=== PATIENT | male | born 1935 | race Hispanic/Latino ===

== ENCOUNTER 2017-02-14 15:53 | Inpatient (IN) | payer MEDICARE ==
--- NOTE | 2017-02-14 16:44 | Emergency Department Report ---
HPI - General Chief Complaint: Weakness Time Seen by Provider: 02/14/17 16:26 - HPI HPI: This is an 81-year-old male who presents to the emergency department via EMS from home with complaint of weakness to the bilateral lower legs, back pain, and multiple falls recently. The patient fell 2 times last night but in the past few weeks there has been over 10 phone calls EMS for help lifting a patient off the ground and many more episodes where the family has been getting him off the ground. He has been increasingly unsteady gait but usually walks with a walker. He has swelling to the bilateral feet. He denies any headache, vision change, chest pain, shortness of breath or fever. He went to see his primary care doctor yesterday, Dr. Collins, who is going to send him for an outpatient MRI but he had 2 more falls last night. He does have chronic bilateral knee pain and was supposed to have knee replacement surgery a few months ago by a orthopedist, Dr. Herrera, but his health has been decreasing and they've not been able to do it. 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 No recent travel or sick contacts at home. ED Past Medical Hx - Past Medical History Hx Hypertension: Yes Hx Heart Attack/AMI: Yes (x 3) Hx Diabetes: Yes Additional medical history: high cholesterol, glacoma, catoracts, venous insufficiency - Surgical History Hx Appendectomy: Yes Additional Surgical History: Tonsilectomy, hemorrhiodectomy, cyst remove from skull x 2, bypass x 3 - Social History Smoking Status: Former Smoker Substance Use Type: None - Medications Home Medications: Home Medications Medication Instructions Recorded Confirmed Last Taken Type Aspirin [Aspirin BABY CHEW TAB] 81 mg PO QDAY 02/14/17 02/14/17 02/14/17 History AtorvaSTATin [Lipitor] 20 mg PO QDAY 02/14/17 02/14/17 02/14/17 History FLUoxetine [PROzac] 20 mg PO QDAY 02/14/17 02/14/17 02/14/17 History Lisinopril [Zestril TAB] 10 mg PO QDAY 02/14/17 02/14/17 02/14/17 History Lisinopril/Hydrochlorothiazide 1 tab PO QDAY 02/14/17 02/14/17 02/14/17 History [Zestoretic 20-25 mg] Loratadine 10 mg PO QDAY 02/14/17 02/14/17 02/14/17 History Magnesium Carbonate/Al Hydrox 2 each PO DAILY PRN 02/14/17 02/14/17 02/14/17 History [Gaviscon Es Tablet Chew] Metformin HCl [Glucophage] 1,000 mg PO BID 02/14/17 02/14/17 02/14/17 History Metoprolol [Lopressor TAB] 50 mg PO BID 02/14/17 02/14/17 02/14/17 History Tamsulosin [Flomax] 0.4 mg PO QDAY 02/14/17 02/14/17 02/14/17 History ED Review of Systems ROS: Stated complaint: WEAKNESS Other details as noted in HPI Comment: All other systems reviewed and negative Constitutional: denies: chills, fever Eyes: denies: eye pain, eye discharge, vision change ENT: denies: ear pain, throat pain Respiratory: denies: cough, shortness of breath, wheezing Cardiovascular: denies: chest pain, palpitations Gastrointestinal: denies: abdominal pain, nausea, diarrhea Genitourinary: denies: urgency, dysuria Musculoskeletal: back pain, arthralgia Skin: denies: rash, lesions Neurological: weakness, numbness, paresthesias. denies: headache Physical Exam - Physical Exam Vital Signs: Vital Signs 02/14/17 16:08 Temperature 98.1 F Pulse Rate 70 Respiratory 20 Rate Blood Pressure 137/60 O2 Sat by Pulse 97 Oximetry Physical Exam: GENERAL: The patient is well-developed well-nourished. HEENT: Normocephalic. Atraumatic. Extraocular motions are intact. Patient has moist mucous membranes. Pupils equal reactive to light bilaterally. NECK: Supple. Trachea is midline. CHEST/LUNGS: Clear to auscultation. There is no respiratory distress noted. HEART/CARDIOVASCULAR: Regular. There is no tachycardia. There is no gallop rub or murmur. ABDOMEN: Abdomen is soft, nontender. Patient has normal bowel sounds. There is no abdominal distention. SKIN: Skin is warm and dry. NEURO: The patient is awake, alert, and oriented. The patient is cooperative. The patient has no focal neurologic deficits. The patient has normal speech. MUSCULOSKELETAL: There is no tenderness or deformity. There is no limitation range of motion. There is no evidence of acute injury. Muscle strength 5 out of 5 to the bilateral upper extremities. Muscle strength is 5 out of 5 with dorsi/plantar flexion including EHL bilaterally. Patient has difficulty with leg extension bilaterally secondary to pain and/or weakness. BACK: There is some tenderness to palpation to both midline and paraspinal lumbar back. No step-off or deformity. No midline thoracic or tenderness to palpation or deformity. ED Course Vital Signs 02/14/17 16:08 Temperature 98.1 F Pulse Rate 70 Respiratory 20 Rate Blood Pressure 137/60 O2 Sat by Pulse 97 Oximetry ED Medical Decision Making - Lab Data Result diagrams: 02/14/17 17:35 02/14/17 17:35 - EKG Data -: EKG Interpreted by Me EKG shows normal: sinus rhythm, axis, intervals, QRS complexes (incomplete right bundle-branch block), ST-T waves (nonspecific T waves) Rate: normal - EKG Data When compared to previous EKG there are: previous EKG unavailable Interpretation: other (sinus rhythm, 66 beats per minute, incomplete right bundle branch block, nonspecific T-wave) - Radiology Data Radiology results: report reviewed, image reviewed interpreted by me: Chest x-ray did not show any acute process. Heart is normal shape and size. No effusions. No pneumothorax. No signs of pneumonia seen. Sternotomy wires are seen. CT of the head does not show any acute bleed, shift, mass or any acute process. No signs of acute ischemic changes. MRI of the thoracic spine with and without contrast shows a small focal left- sided posterior disc protrusion at T8-9. Mild broad-based annular bulges at T9/ 10 and T10/11. MRI of the lumbar spine with and without contrast shows mild to moderate sequela of lumbar disc degeneration. No severe stenosis or imaging evidence of nerve root impingement to suggest specific cause for patient's symptoms. - Medical Decision Making 81-year-old male presents to the emergency department with his family with complaint of multiple recent falls secondary to weakness. He has some complaints of some intermittent numbness to the bilateral lower extremities. Patient has some recent urinary incontinence. In the patient has some back pain secondary to these falls. With the patient having some falls, back pain and some weakness, and MRI of the thoracic and lumbar spine were done. There is some mild to moderate lumbar disc degeneration but otherwise no fractures, stenosis or nerve root impingement. The thoracic spine had a small focal left-sided posterior disc protrusion and some broad annular bulges, but once again no signs of stenosis or new for root impingement that would be the etiology of the patient's symptoms. Certainly there is no sign of any cord compression, cauda equina or epidural abscess. Patient's labs show some abnormalities including hyponatremia with a sodium of 125 and an elevated troponin. The patient does not have any complaints of chest or shortness of breath. Spoke with cardiology who has agreed to see the patient and suggests heparin only if the troponin trend upwards. Patient has been accepted for admission by the hospitalist, Dr. Donaldson. - Differential Diagnosis spinal fracture, contusion, muscle spasm, WA, CVA Critical Care Time: No Critical care attestation.: If time is entered above; I have spent that time in minutes in the direct care of this critically ill patient, excluding procedure time. ED Disposition Clinical Impression: Weakness of both lower extremities, Elevated troponin, Hyponatremia Back pain Qualifiers: Back pain location: low back pain Chronicity: unspecified Back pain laterality : unspecified Sciatica presence: without sciatica Qualified Code(s): M54.5 - Low back pain Disposition: OP ADMITTED IP TO THIS HOSP Is pt being admited?: Yes Condition: Stable Referrals: PRIMARY CARE,MD [Primary Care Provider] - 3-5 Days Time of Disposition: 00:12
[2017-02-14 17:45] LABS: Basophils % (Auto) 0.9 % (0.0-1.8); Eosinophils % (Auto) 0.1 % (0.0-4.3); Hemoglobin 13.8 gm/dl (11.8-15.2); Mean Corpuscular HGB Conc 35 % (32-34); Mean Corpuscular Hemoglobin 31 pg (28-32); Mean Corpuscular Volume 90 fl (84-94); Platelet Count 169 K/mm3 (140-440); Red Blood Count 4.45 M/mm3 (3.65-5.03); Red Cell Distribution Width 14.1 % (13.2-15.2)
--- NOTE | 2017-02-14 17:49 | Cat Scan Report ---
FINAL REPORT PROCEDURE: CT head without contrast. TECHNIQUE: Computerized tomography of the head was performed without contrast material. HISTORY: Weakness. COMPARISON: No prior studies are available for comparison. FINDINGS: There is mild cerebral atrophy. There is some diminished attenuation within the deep white matter of both cerebral hemispheres. This is more pronounced on the left side. This likely represents chronic microvascular ischemic change. 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 There are no definite signs of acute infarction. There are no mass lesions. There is no intracranial hemorrhage. The calvarium appears intact. There is opacification of the few left-sided mastoid air cells. 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 There is also opacification of a few of the right mastoid air cells which are more numerous. The paranasal sinuses are clear as far as visualized. IMPRESSION: Mild cerebral atrophy and probable chronic ischemic changes as described. No definite signs of acute intracranial disease. Mastoiditis as described.
[2017-02-14 18:12] LABS: Alanine Aminotransferase 10 units/L (7-56); Albumin 3.5 g/dL (3.9-5); Albumin/Globulin Ratio 1.2 %; Alkaline Phosphatase 98 units/L (35-129); Anion Gap 18 mmol/L; Blood Urea Nitrogen 19 mg/dL (9-20); Calcium 10.2 mg/dL (8.4-10.2); Carbon Dioxide 29 mmol/L (22-30); Chloride 81.9 mmol/L (98-107); Creatine Kinase 88 units/L (55-170); Glucose 130 mg/dL (75-100); Potassium 4.1 mmol/L (3.6-5.0); Sodium 125 mmol/L (137-145); Total Protein 6.4 g/dL (6.3-8.2)
[2017-02-14] MEDS ORDERED: ATIVAN ONE (18:13)
[2017-02-14] MEDS ORDERED: ATIVAN IV ONE ×2 (18:32→19:01)
[2017-02-14 18:44] LABS: Cholesterol 94 mg/dL (50-199); HDL Cholesterol 48 mg/dL (40-59); LDL Cholesterol,Direct 37 mg/dL (50-130); Triglycerides 49 mg/dL (2-149)
--- NOTE | 2017-02-14 18:49 | Admit Criteria Form ---
Admission Criteria Documentation: HYPONATREMIA; HYPERNATREMIA; HYPOKALEMIA; HYPERKALEMIA; HYPOCALCEMIA; HYPERCALCEMIA Clinical Indications for Inpatient Care (Place 'X' for any and all applicable criteria): Ongoing inpatient care may be indicated for ANY ONE of the following [G](1)(2)(3 )(5): [X]I. Hyponatremia with ANY ONE of the following: [X]a) Sodium less than 130 mEq/L (mmol/L) (new) (6)(22) [ ]b) Sodium less than 135 mEq/L (mmol/L) with ANY ONE of the following: [ ]i) Severe medical etiology requiring inpatient management (eg, heart failure, hypovolemia) [ ]ii) Altered mental status [ ]iii) Seizures [ ]II. Hypernatremia with ANY ONE of the following: [ ]a) Sodium greater than 155 mEq/L (mmol/L) [ ]b) Sodium greater than 150 mEq/L (mmol/L) with ANY ONE of the following: [ ] i) Altered mental status [ ]ii) Seizures [ ]iii) Severe medical etiology (eg, hypovolemia, diabetes insipidus) [ ]iv) Severe weakness [ ]v) Severe medical etiology (eg, hemolysis, infection, drug overdose) [ ]III. Hypokalemia with ANY ONE of the following: [ ]a) Potassium less than 2.5 mEq/L (mmol/L) despite outpatient and emergency treatment [ ]b) Potassium less than 3.0 mEq/L (mmol/L) with ANY ONE of the following: [ ]i) Weakness [ ]ii) Cardiac abnormality (eg, arrhythmia, conduction disturbance) [ ]iii) Cardiac ischemia [ ]iv) Ileus [ ]v) Ongoing medical cause requiring inpatient management. ( e.g., acute renal wasting, SIADH) [ ]vi) Other severe symptoms [ ] IV. Hyperkalemia with ANY ONE of the following: [ ]a) Potassium greater than 6.5 mEq/L (mmol/L) [ ]b) Potassium greater than 5 mEq/L (mmol/L) with ANY ONE of the following: [ ]i) Severe ECG findings [H] [ ]ii) Acute worsening of renal failure (creatinine greater than 2.5 mg/dL (221 micromoles/L) or significant elevation for age and size) [ ] V. Hypocalcemia with ANY ONE of the following: [ ]a) Calcium less than 7 mg/dL (1.75 mmol/L) despite outpatient and emergency treatment(19) [ ]b) Calcium less than 8 mg/dL (2 mmol/L) with significant symptoms or findings; examples include: [ ]i) Cardiac abnormality (eg, arrhythmia or conduction disturbance) [ ]ii) Altered mental status [ ]iii) Seizures [ ]iv) Breathing difficulty [ ]v) Muscle spasms [ ]. Hypercalcemia with ANY ONE of the following: [ ]a) Calcium greater than 14 mg/dL (3.5 mmol/L) [ ]b) Calcium greater than 12 mg/dL (3 mmol/L) with ANY ONE of the following: [ ]i) Significant dehydration or hypovolemia as indicated by ANY ONE of the following(2): [ ]1. Clinically significant dehydration as indicated by ANY ONE of the following: [ ]A. Acute loss of weight from baseline (5% of body weight in adults, 9% in pediatric patients) [ ]B. Hemodynamic instability [ ]C. Acute renal failure [ ]D. Serum sodium greater than 150 mEq/L (mmol/L) [ ]2) Dehydration that is persistent indicated by ALL of the following: [ ]A. Oral rehydration therapy not tolerated or insufficient to adequately correct dehydration [ ]B. Appropriate intravenous treatment (eg, fluids ) does not readily correct dehydration ie, after 12 to 24 hours of treatment) [ ]ii) Significant symptoms or findings; examples include: [ ]1) Altered mental status [ ]2) Cardiac abnormality (eg, arrhythmia, conduction disturbance) [ ]3) Cardiac abnormality (eg, arrhythmia, conduction disturbance) The original [facility] content created by [employer] has been revised. The portions of the content which have been revised are identified through the use of italic text or in bold, and [facility] has neither reviewed nor approved the modified material. All other unmodified content is copyright [facility] [employer] Please see references footnoted in the original [facility] [employer] edition 2016 Admission Criteria Met: Yes
[2017-02-14] MEDS ORDERED: MORPHINE ONE (19:34)
[2017-02-14] MEDS ORDERED: NACL 0.9% 500 ML 500 ML IV ONE (20:11)
--- NOTE | 2017-02-14 21:14 | Magnetic Resonance Report ---
FINAL REPORT PROCEDURE: MRI thoracic spine without and with contrast. TECHNIQUE: Magnetic resonance imaging of the thoracic spine was performed using standard pulse sequences before and after the IV injection of paramagnetic contrast. CPT 32322 HISTORY: Back pain, weakness, incontinence. COMPARISON: No prior studies are available for comparison. FINDINGS: There is motion artifact on many of the pulse sequences. The thoracic vertebrae have normal height and alignment. There are no fractures. There is no subluxation. There is normal signal intensity from the bone marrow. The disc spaces appear adequate. At T8-9 there is a small focal posterior disc protrusion. This is located to the left of center. It causes some left-sided distortion of the thecal sac. There are small, broad based posterior disc protrusions at T9-10 and T10-11. There is no significant spinal canal narrowing. The thoracic cord has a normal caliber and normal signal intensity. There are no signs of abnormal contrast enhancement. IMPRESSION: Small focal left-sided posterior disc protrusion at T8-9. Mild broad-based annular bulges at T9-10 and T10-11.
--- NOTE | 2017-02-14 21:34 | Magnetic Resonance Report ---
FINAL REPORT EXAM: MR LUMBAR SPINE WO/W CON HISTORY: Back pain, weakness, incontinence TECHNIQUE: Multisequence, multiplanar MR imaging is obtained through the lumbar spine prior and subsequent to intravenous administration of 15 cc MultiHance gadolinium contrast PRIORS: Thoracic spine MRI of the same date FINDINGS: Lumbar lordosis and vertebral body heights are preserved. Edematous endplate degeneration anteriorly at L2-L3. Incidental intravertebral hemangioma at L2. Marrow signal is otherwise within normal limits. No fracture or infiltrative process. No listhesis. The conus terminates at the L1 level. Cauda equina is normal in caliber and signal characteristics. The paraspinal soft tissues to include the imaged portions of the abdomen and pelvis are remarkable for renal cortical scarring and perinephric stranding. Examination is compromised by motion artifact. At L1-L2 there is mild disc desiccation and mild loss in disc height with a small posterior central protrusion with annular fissuring. No significant spinal canal or neural foraminal stenosis. At L2-L3 there is disc desiccation and severe loss in disc height. Small circumferential disc bulge. No significant spinal canal stenosis. Mild bilateral neural foraminal narrowing. At L3-L4 there is disc desiccation and mild loss in disc height. Small circumferential disc bulge. No significant spinal canal or neural foraminal stenosis. At L4-L5 there is disc desiccation without significant loss in disc height. Mild facet arthrosis and ligamentum flavum thickening. No significant spinal canal stenosis. Mild bilateral neural foraminal narrowing. At L5-S1 there is disc desiccation and moderate loss in disc height. Small posterior disc protrusion. Bilateral facet arthropathy and ligamentum flavum thickening. Mild spinal canal and bilateral neural foraminal stenosis. IMPRESSION: [id number] sequela of lumbar disc degeneration, as detailed above. Examination is compromised by motion artifact. No severe stenosis or imaging evidence of nerve root impingement to suggest specific cause for patient's symptoms.
[2017-02-14] MEDS ORDERED: MILK OF MAGNESIA PO PRN (23:17)
[2017-02-14] MEDS ORDERED: DULCOLAX PR PRN (23:17)
[2017-02-14] MEDS ORDERED: TYLENOL PO PRN (23:17)
--- NOTE | 2017-02-14 23:22 | History and Physical Report ---
History of Present Illness Date of examination: 02/14/17 History of present illness: 81-year-old man with a history of hypertension, diabetes complicated by neuropathy, coronary artery disease, hyperlipidemia, glaucoma, cataracts, venous insufficiency comes emergency room with complaints of frequent falls. Family at bedside state that patient was scheduled for surgery on knees in May of last year but he had an infection, surgery was postponed. He has fallen at least 10 times since November, and EMS had to be called the last few times to help get him off the floor. He said increased lower extremity edema. He saw his primary care physician yesterday, was diagnosed with a urinary tract infection, was given antibiotic but has not taking any yet. He is alert no fever chills, cough, chest pain. He had episodes of nausea vomiting this morning. Review of system is unobtainable, patient is sedated, history is per family PAST SURGICAL HISTORY: Appendectomy, tonsillectomy, hemorrhoidectomy, CABG, cyst removal from skull, surgery for deviated septum SOCIAL HISTORY: No alcohol, tobacco, drugs FAMILY HISTORY: Hypertension Medications and Allergies Allergies Allergy/AdvReac Type Severity Reaction Status Date / Time No Known Allergies Allergy Unverified 02/14/17 16:07 Home Medications Medication Instructions Recorded Confirmed Last Taken Type Aspirin [Aspirin BABY CHEW TAB] 81 mg PO QDAY 02/14/17 02/14/17 02/14/17 History AtorvaSTATin [Lipitor] 20 mg PO QDAY 02/14/17 02/14/17 02/14/17 History FLUoxetine [PROzac] 20 mg PO QDAY 02/14/17 02/14/17 02/14/17 History Lisinopril [Zestril TAB] 10 mg PO QDAY 02/14/17 02/14/17 02/14/17 History Lisinopril/Hydrochlorothiazide 1 tab PO QDAY 02/14/17 02/14/17 02/14/17 History [Zestoretic 20-25 mg] Loratadine 10 mg PO QDAY 02/14/17 02/14/17 02/14/17 History Magnesium Carbonate/Al Hydrox 2 each PO DAILY PRN 02/14/17 02/14/17 02/14/17 History [Gaviscon Es Tablet Chew] Metformin HCl [Glucophage] 1,000 mg PO BID 02/14/17 02/14/17 02/14/17 History Metoprolol [Lopressor TAB] 50 mg PO BID 02/14/17 02/14/17 02/14/17 History Tamsulosin [Flomax] 0.4 mg PO QDAY 02/14/17 02/14/17 02/14/17 History Active Meds: Active Medications Acetaminophen (Tylenol) 650 mg PO Q4H PRN PRN Reason: Pain MILD(1-3)/Fever >100.5/EWING Bisacodyl (Dulcolax) 10 mg [place] QDAY PRN PRN Reason: Constipation unrelieved by [facility] [place] Enoxaparin Sodium (Lovenox) 30 mg SUB-Q QDAY JAMES Ceftriaxone Sodium (Rocephin/Ns 1 Gm/50 Ml) 1 gm in 50 mls @ 100 mls/hr IV Q24HR@2200 JAMES PRN Reason: Protocol Magnesium Hydroxide (Milk Of Magnesia) 30 ml PO Q4H PRN PRN Reason: Constipation Ondansetron HCl (Zofran) 4 mg IV Q8H PRN PRN Reason: N/V unrelieved by Reglan Exam - Physical Exam Narrative exam: Gen. appearance: Patient lying in bed, no apparent distress HEENT: Normocephalic, atraumatic, pupils equally round and reactive to light, extraocular movement intact, and no sclericterus,. No JVD or thyromegaly or nodule,neck supple, no carotid bruit ,mucous membranes moist, no exudate or erythema Heart: S1, S2, regular rate and rhythm Lungs: Clear to auscultation bilaterally, breathing comfortable Abdomen: Positive bowel sounds, nontender, nondistended, no organomegaly Extremity: No edema, cyanosis, clubbing Skin: No rash, nodules, warm, dry Neuro: sedated - Constitutional Vitals: Temp Pulse Resp BP Pulse Ox 98.1 F 81 20 134/53 94 02/14/17 16:08 02/14/17 19:49 02/14/17 19:49 02/14/17 19:49 02/14/17 19:49 Results - Labs CBC & Chem 7: 02/16/17 09:43 02/17/17 06:58 Labs: Abnormal lab results 02/14/17 02/14/17 Range/Units 17:35 17:35 WBC 18.0 H (4.5-11.0) K/mm3 MCHC 35 H (32-34) % Lymph % (Auto) 9.6 L (13.4-35.0) % [place] % (Auto) 7.5 H (0.0-7.3) % [place] # 1.4 H (0.0-0.8) K/mm3 Baso # 0.2 H (0.0-0.1) K/mm3 Seg Neutrophils % 81.9 H (40.0-70.0) % Seg Neutrophils # 14.8 H (1.8-7.7) K/mm3 Sodium 125 L (137-145) mmol/L Chloride 81.9 L (98-107) mmol/L Creatinine 0.4 L (0.8-1.5) mg/dL Glucose 130 H (75-100) mg/dL Troponin T 0.159 H* (0.00-0.029) ng/mL Albumin 3.5 L (3.9-5) g/dL LDL Cholesterol Direct 37 L (50-130) mg/dL - Imaging and Cardiology Chest x-ray: image reviewed CT Scan - head: report reviewed Assessment and Plan MRI of the lumbar and thoracic spine reviewed SIRS Elevated troponin Hyponatremia Coronary artery disease Hypertension Diabetes complicated by neuropathy Hyperlipidemia Venous insufficiency Admit to medicine Obtain blood culture, urinalysis, start empiric IV Rocephin Check cardiac enzymes, echo, consult cardiology Fingersticks initiate insulin sliding scale Consult physical therapy Continue appropriate outpatient medications, start DVT prophylaxis Troponin trending up,start heparin drip per cardiology
[2017-02-15] MEDS ORDERED: ROCEPHIN/NS 1 GM/50 ML 1 GM/50 ML BAG IV ONE (00:21)
[2017-02-15] MEDS: ROCEPHIN/NS 1 GM/50 ML 1 GM/50 ML BAG IV SCH ×2 (00:28→22:35)
[2017-02-15] MEDS ORDERED: HEPARIN/ 0.45% NACL-25,000 UNIT/500 ML 25,000 UNIT/500 ML BAG IV SCH (00:35)
[2017-02-15 01:40] LABS: Hemoglobin 12.6 gm/dl (11.8-15.2)
[2017-02-15 01:50] LABS: INR 1.07 (0.87-1.13)
[2017-02-15 01:51] LABS: Partial Thromboplastin Time 31.5 Sec. (24.2-36.6)
[2017-02-15 03:22] LABS: Basophils % (Auto) 0.4 % (0.0-1.8); Hematocrit 37.7 % (35.5-45.6); Hemoglobin 12.7 gm/dl (11.8-15.2); Mean Corpuscular HGB Conc 34 % (32-34); Mean Corpuscular Hemoglobin 30 pg (28-32); Mean Corpuscular Volume 90 fl (84-94); Platelet Count 161 K/mm3 (140-440); Red Blood Count 4.17 M/mm3 (3.65-5.03); Red Cell Distribution Width 14.2 % (13.2-15.2); White Blood Count 17.3 K/mm3 (4.5-11.0)
[2017-02-15 03:40] LABS: Anion Gap 19 mmol/L; Blood Urea Nitrogen 21 mg/dL (9-20); Calcium 9.1 mg/dL (8.4-10.2); Carbon Dioxide 27 mmol/L (22-30); Glucose 107 mg/dL (75-100); Potassium 3.5 mmol/L (3.6-5.0); Sodium 126 mmol/L (137-145)
[2017-02-15 06:50] LABS: Creatine Kinase MB 4.6 ng/mL (0.0-4.0)
--- NOTE | 2017-02-15 08:24 | XRay Report ---
AP chest x-ray. History: Chest pain. Findings: There is suboptimal inspiration. The heart and pulmonary vessels appear normal. The lungs are grossly clear. No pleural fluid is seen. Median sternotomy sutures are noted. Impression: Technically limited negative study.
[2017-02-15] MEDS ORDERED: LOVENOX SUB-Q SCH ×2 (10:00)
[2017-02-15] MEDS ORDERED: D50W (25GM) IV PRN (10:35)
[2017-02-15] MEDS ORDERED: HEPARIN 10,000 UNITS/10 ML IV NR (10:38)
[2017-02-15] MEDS: NOVOLOG SUB-Q SCH ×3 (11:30→22:39)
--- NOTE | 2017-02-15 13:34 | Consultation ---
History of Present Illness Consult date: 02/15/17 Consult reason: elevated troponin History of present illness: Patient is an 81yr old male with a history of coronary artery disease status post 3 way coronary bypass grafting in 2006 at [facility]. His most recent cardiac workup was a done February 2016. He had a normal perfusion thallium stress test. Ejection fraction 50-55% on echocardiogram. Patient presented with severe bilateral lower extremity weakness resulting in multiple falls over the last few days. Noted multiple metabolic abnormalities including a sodium of 125 and a WBC of 18,000 on initial workup in the ED. Cardiac consultation requested for elevated troponin of 0.2. He had a CK/MB of 5.0 and a relative index of 8.6. His ECG shows a sinus rhythm with underlying RBBB. No acute ischemic changes. Patient denies chest pain and shortness of breath. There was no syncope. Medications and Allergies Allergies Allergy/AdvReac Type Severity Reaction Status Date / Time No Known Allergies Allergy Unverified 02/14/17 16:07 Home Medications Medication Instructions Recorded Confirmed Last Taken Type Aspirin [Aspirin BABY CHEW TAB] 81 mg PO QDAY 02/14/17 02/14/17 02/14/17 History AtorvaSTATin [Lipitor] 20 mg PO QDAY 02/14/17 02/14/17 02/14/17 History FLUoxetine [PROzac] 20 mg PO QDAY 02/14/17 02/14/17 02/14/17 History Lisinopril [Zestril TAB] 10 mg PO QDAY 02/14/17 02/14/17 02/14/17 History Lisinopril/Hydrochlorothiazide 1 tab PO QDAY 02/14/17 02/14/17 02/14/17 History [Zestoretic 20-25 mg] Loratadine 10 mg PO QDAY 02/14/17 02/14/17 02/14/17 History Magnesium Carbonate/Al Hydrox 2 each PO DAILY PRN 02/14/17 02/14/17 02/14/17 History [Gaviscon Es Tablet Chew] Metformin HCl [Glucophage] 1,000 mg PO BID 02/14/17 02/14/17 02/14/17 History Metoprolol [Lopressor TAB] 50 mg PO BID 02/14/17 02/14/17 02/14/17 History Tamsulosin [Flomax] 0.4 mg PO QDAY 02/14/17 02/14/17 02/14/17 History Active Meds: Active Medications Acetaminophen (Tylenol) 650 mg PO Q4H PRN PRN Reason: Pain MILD(1-3)/Fever >100.5/EWING Aspirin (Baby Aspirin) 81 mg PO QDAY JAMES Atorvastatin Calcium (Lipitor) 20 mg PO HS JAMES Bisacodyl (Dulcolax) 10 mg [place] QDAY PRN PRN Reason: Constipation unrelieved by MOM Dextrose (D50w (25gm)) 50 ml IV PRN PRN PRN Reason: Hypoglycemia Fluoxetine HCl (Prozac) 20 mg PO QDAY JAMES Hydrochlorothiazide (Hctz) 25 mg PO QDAY JAMES Ceftriaxone Sodium (Rocephin/Ns 1 Gm/50 Ml) 1 gm in 50 mls @ 100 mls/hr IV Q24HR@2200 JAMES PRN Reason: Protocol Last Admin: 02/15/17 00:28 Dose: 100 mls/hr Heparin Sodium/Sodium Chloride (Heparin/ 0.45% Nacl-25,000 Unit/500 Ml) 25,000 unit in 500 mls @ 20 mls/hr IV TITRATE JAMES; 1,000 UNITS/HR PRN Reason: Protocol Last Titration: 02/15/17 11:08 Dose: 1,350 units/hr, 27 mls/hr Insulin Aspart (Novolog) 0 units SUB-Q ACHS JAMES PRN Reason: Protocol Lisinopril (Zestril) 20 mg PO QDAY JAMES Loratadine (Claritin) 10 mg PO QDAY [facility] Magnesium Hydroxide (Milk Of Magnesia) 30 ml PO Q4H PRN PRN Reason: Constipation Metoprolol Tartrate (Lopressor) 50 mg PO BID JAMES Ondansetron HCl (Zofran) 4 mg IV Q8H PRN PRN Reason: N/V unrelieved by Reglan Pseudoephedrine/Acetam/Chlorphenir (Robitussin Ac) 10 ml PO Q4H PRN PRN Reason: Cough Tamsulosin HCl (Flomax) 0.4 mg PO QDAY [facility] Physical Examination Vital Signs Temp Pulse Resp BP Pulse Ox 98.1 F 70 20 137/60 97 02/14/17 16:08 02/14/17 16:08 02/14/17 16:08 02/14/17 16:08 02/14/17 16:08 General appearance: no acute distress HEENT: Positive: PERRL Neck: Positive: trachea midline Cardiac: Positive: Reg Rate and Rhythm Lungs: Positive: Decreased Breath Sounds Neuro: Positive: Weakness Results 02/15/17 03:10 02/15/17 03:10 Cardiac Enzymes 02/14/17 02/15/17 Range/Units 23:30 06:11 CK-MB (CK-2) 5.0 H 4.6 H (0.0-4.0) ng/mL Coagulation 02/15/17 Range/Units 00:59 PT 13.8 (12.2-14.9) Sec. INR 1.07 (0.87-1.13) APTT 31.5 (24.2-36.6) Sec. CBC 02/15/17 02/15/17 Range/Units 00:59 03:10 WBC 17.3 H (4.5-11.0) K/mm3 RBC 4.17 (3.65-5.03) M/mm3 Hgb 12.6 12.7 (11.8-15.2) gm/dl Hct 37.0 37.7 (35.5-45.6) % Plt Count 160 161 (140-440) K/mm3 Lymph # 1.8 (1.2-5.4) K/mm3 [place] # 1.4 H (0.0-0.8) K/mm3 Eos # 0.0 (0.0-0.4) K/mm3 Baso # 0.1 (0.0-0.1) K/mm3 Comprehensive Metabolic Panel 02/15/17 Range/Units 03:10 Sodium 126 L (137-145) mmol/L Potassium 3.5 L (3.6-5.0) mmol/L Chloride 84.0 L (98-107) mmol/L Carbon Dioxide 27 (22-30) mmol/L BUN 21 H (9-20) mg/dL Creatinine 0.5 L (0.8-1.5) mg/dL Glucose 107 H (75-100) mg/dL Calcium 9.1 (8.4-10.2) mg/dL Assessment and Plan Bilateral Leg Weakness Hyponatremia Leukocytosis Hx of CAD with 3 way CABG 2006 normal perfusion MPI 02/2016 EF 50-55% on echo 02/2016 Diabetes mellitus Hypertension
[2017-02-15] MEDS: ROBITUSSIN AC PO PRN (16:43)
--- NOTE | 2017-02-15 17:02 | Progress Note ---
Assessment and Plan Assessment and plan: 81-year-old man with a history of hypertension, diabetes complicated by neuropathy, coronary artery disease, hyperlipidemia, glaucoma, cataracts, venous insufficiency comes emergency room with complaints of frequent falls. Family at bedside state that patient was scheduled for surgery on knees in May of last year but he had an infection, surgery was postponed. He has fallen at least 10 times since November, and EMS had to be called the last few times to help get him off the floor. He said increased lower extremity edema. He saw his primary care physician yesterday, was diagnosed with a urinary tract infection, was given antibiotic but has not taking any yet. He is alert no fever chills, cough, chest pain. He had episodes of nausea vomiting this morning. 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 * Obtain physical therapy evaluate and treat per family physical therapy has been working with the patient at home but has not got that the patient on BX due to his severe weakness. I've advised family to be compliant with physical therapy saying not get the patient off unless he is strong enough and uses a walker. * We'll continue antibiotic while awaiting urinalysis and urine culture * Continue home medications * DVT and GI prophylaxis * We'll give a dose of Lasix * Discontinue heparin drip at this point. * Plan of care discussed with the patient and the daughter History Interval history: Patient was examined today and markedly distress reports generalized weakness that this is the best sleep he's got in the last 2 years. He is accompanied with the daughter reports the patient has been having worsening weakness for a few months now and is currently being evaluated by primary care physician was recently diagnosed with UTI but has been unable to stop the antibiotics. Otherwise no other adverse events reported at this time. Hospitalist Physical - Physical exam Narrative exam: VITAL SIGNS: Reviewed. GENERAL: The patient appeared well nourished and normally developed, morbidly obese. Vital signs as documented. HEAD: No signs of head trauma. EYES: Pupils are equal. Extraocular motions intact. EARS: Hearing grossly intact. MOUTH: Oropharynx is normal. NECK: No adenopathy, no JVD. CHEST: Chest with clear breath sounds bilaterally. No wheezes, rales, or rhonchi. CARDIAC: Regular rate and rhythm. S1 and S2, without murmurs, gallops, or rubs. VASCULAR: Trace Edema. Peripheral pulses normal and equal in all extremities. ABDOMEN: Truncal obesity Soft, without detectable tenderness. No sign of distention. No rebound or guarding, and no masses palpated. Bowel Sounds normal. MUSCULOSKELETAL: Good range of motion of all major joints. Extremities without clubbing, cyanosis. Noted trace edema. NEUROLOGIC EXAM: Alert and oriented x 3. No focal sensory. Diffuse decreased motor strength of the bilateral lower extremity.. Speech normal. Follows commands. PSYCHIATRIC: Mood normal. SKIN: No rash or lesions. - Constitutional Vitals: Temp Pulse Resp BP Pulse Ox 98.2 F 86 20 108/53 97 02/15/17 12:00 02/15/17 12:00 02/15/17 12:00 02/15/17 12:00 02/15/17 12:00 General appearance: Present: no acute distress Results - Labs CBC & Chem 7: 02/15/17 03:10 02/15/17 03:10 Labs: Laboratory Last Values WBC 17.3 K/mm3 (4.5-11.0) H 02/15/17 03:10 RBC 4.17 M/mm3 (3.65-5.03) 02/15/17 03:10 Hgb 12.7 gm/dl (11.8-15.2) 02/15/17 03:10 Hct 37.7 % (35.5-45.6) 02/15/17 03:10 MCV 90 fl (84-94) 02/15/17 03:10 MCH 30 pg (28-32) 02/15/17 03:10 MCHC 34 % (32-34) 02/15/17 03:10 RDW 14.2 % (13.2-15.2) 02/15/17 03:10 Plt Count 161 K/mm3 (140-440) 02/15/17 03:10 Lymph % (Auto) 10.5 % (13.4-35.0) L 02/15/17 03:10 [place] % (Auto) 7.9 % (0.0-7.3) H 02/15/17 03:10 Eos % (Auto) 0.0 % (0.0-4.3) 02/15/17 03:10 Baso % (Auto) 0.4 % (0.0-1.8) 02/15/17 03:10 Lymph # 1.8 K/mm3 (1.2-5.4) 02/15/17 03:10 [place] # 1.4 K/mm3 (0.0-0.8) H 02/15/17 03:10 Eos # 0.0 K/mm3 (0.0-0.4) 02/15/17 03:10 Baso # 0.1 K/mm3 (0.0-0.1) 02/15/17 03:10 Seg Neutrophils % 81.2 % (40.0-70.0) H 02/15/17 03:10 Seg Neutrophils # 14.0 K/mm3 (1.8-7.7) H 02/15/17 03:10 PT 13.8 Sec. (12.2-14.9) 02/15/17 00:59 INR 1.07 (0.87-1.13) 02/15/17 00:59 APTT 31.5 Sec. (24.2-36.6) 02/15/17 00:59 Heparin Anti-Xa Level < 0.10 U.I./ml (0.3-0.7) L 02/15/17 08:22 Sodium 126 mmol/L (137-145) L 02/15/17 03:10 Potassium 3.5 mmol/L (3.6-5.0) L 02/15/17 03:10 Chloride 84.0 mmol/L (98-107) L 02/15/17 03:10 Carbon Dioxide 27 mmol/L (22-30) 02/15/17 03:10 Anion Gap 19 mmol/L 02/15/17 03:10 BUN 21 mg/dL (9-20) H 02/15/17 03:10 Creatinine 0.5 mg/dL (0.8-1.5) L 02/15/17 03:10 Estimated GFR > 60 ml/min 02/15/17 03:10 BUN/Creatinine Ratio 42.00 % 02/15/17 03:10 Glucose 107 mg/dL (75-100) H 02/15/17 03:10 Calcium 9.1 mg/dL (8.4-10.2) 02/15/17 03:10 Total Bilirubin 1.0 mg/dL (0.1-1.2) 02/14/17 17:35 AST 14 units/L (5-40) 02/14/17 17:35 ALT 10 units/L (7-56) 02/14/17 17:35 Alkaline Phosphatase 98 units/L (35-129) 02/14/17 17:35 Total Creatine Kinase 51 units/L (55-170) L 02/15/17 06:11 CK-MB (CK-2) 4.6 ng/mL (0.0-4.0) H 02/15/17 06:11 CK-MB (CK-2) Rel Index 9.0 (0-4) H 02/15/17 06:11 Troponin T 0.212 ng/mL (0.00-0.029) H* 02/15/17 06:11 NT-Pro-B Natriuret Pep 317.8 pg/mL (0-900) 02/14/17 17:35 Total Protein 6.4 g/dL (6.3-8.2) 02/14/17 17:35 Albumin 3.5 g/dL (3.9-5) L 02/14/17 17:35 Albumin/Globulin Ratio 1.2 % 02/14/17 17:35 Triglycerides 49 mg/dL (2-149) 02/14/17 17:35 Cholesterol 94 mg/dL (50-199) 02/14/17 17:35 LDL Cholesterol Direct 37 mg/dL (50-130) L 02/14/17 17:35 HDL Cholesterol 48 mg/dL (40-59) 02/14/17 17:35 Cholesterol/HDL Ratio 1.95 % 02/14/17 17:35 - Imaging and Cardiology CT Scan - head: image reviewed (no acute pathology noted by me)
[2017-02-15 17:16] LABS: Bilirubin,Urine NEG (Negative); Blood,Urine SM (Negative); Ketones,Urine NEG (Negative); Leukocyte Esterase,Urine LG (Negative); Mucus,Urine FEW /HPF; Nitrite,Urine NEG (Negative); Protein,Urine <15 mg/dL mg/dL (Negative); Urobilinogen,Urine < 2.0 mg/dL (<2.0)
[2017-02-15] MEDS ORDERED: K-DUR PO ONE (18:01)
[2017-02-15] MEDS ORDERED: LASIX PO ONE (18:30)
[2017-02-15] MEDS: LOPRESSOR PO SCH (22:35)
[2017-02-15] MEDS: ZOFRAN IV PRN (22:35)
[2017-02-16] MEDS: NOVOLOG SUB-Q SCH ×4 (07:29→21:46)
[2017-02-16 09:59] LABS: Basophils % (Auto) 0.4 % (0.0-1.8); Eosinophils % (Auto) 0.5 % (0.0-4.3); Hematocrit 38.5 % (35.5-45.6); Hemoglobin 12.9 gm/dl (11.8-15.2); Mean Corpuscular HGB Conc 34 % (32-34); Mean Corpuscular Hemoglobin 30 pg (28-32); Mean Corpuscular Volume 91 fl (84-94); Platelet Count 180 K/mm3 (140-440); Red Blood Count 4.25 M/mm3 (3.65-5.03); Red Cell Distribution Width 14.1 % (13.2-15.2); White Blood Count 9.9 K/mm3 (4.5-11.0)
[2017-02-16] MEDS ORDERED: K-DUR PO ONE ×2 (10:00→16:00)
[2017-02-16 10:14] LABS: Anion Gap 15 mmol/L; Blood Urea Nitrogen 12 mg/dL (9-20); Calcium 9.6 mg/dL (8.4-10.2); Carbon Dioxide 30 mmol/L (22-30); Chloride 85.4 mmol/L (98-107); Glucose 185 mg/dL (75-100); Potassium 3.7 mmol/L (3.6-5.0); Sodium 127 mmol/L (137-145)
--- NOTE | 2017-02-16 12:42 | Progress Note ---
Assessment and Plan Bilateral Leg Weakness Hyponatremia Leukocytosis Hx of CAD with 3 way CABG 2006 normal perfusion MPI 02/2016 EF 50-55% on echo 02/2016 Diabetes mellitus Hypertension Recommend: Further evaluation of his paraplegia, with a neurology or orthopedic consultation as indicated. Otherwise, conservative cardiac management. Subjective Date of service: 02/16/17 Interval history: No cardiac events overnight. Objective Vital Signs Temp Pulse Pulse Pulse Resp BP BP 02/16/17 10:00 02/16/17 08:00 36.5 F L 72 18 170/72 02/16/17 06:46 97.6 F 65 20 156/71 02/16/17 04:00 92 H 02/16/17 01:56 98.0 F 63 20 115/58 02/15/17 22:35 92 H 127/81 02/15/17 21:17 97.9 F 97 H 20 02/15/17 21:14 02/15/17 20:00 66 02/15/17 16:30 98.0 F 92 H 20 BP Pulse Ox 02/16/17 10:00 96 02/16/17 08:00 97 02/16/17 06:46 97 02/16/17 04:00 02/16/17 01:56 97 02/15/17 22:35 02/15/17 21:17 127/81 96 02/15/17 21:14 97 02/15/17 20:00 02/15/17 16:30 123/59 97 - Physical Examination General: No Apparent Distress HEENT: Positive: PERRL Neck: Positive: trachea midline Cardiac: Positive: Reg Rate and Rhythm Neuro: Positive: Weakness - Labs and Meds CBC 02/16/17 Range/Units 09:43 WBC 9.9 (4.5-11.0) K/mm3 RBC 4.25 (3.65-5.03) M/mm3 Hgb 12.9 (11.8-15.2) gm/dl Hct 38.5 (35.5-45.6) % Plt Count 180 (140-440) K/mm3 Lymph # 1.2 (1.2-5.4) K/mm3 [place] # 0.7 (0.0-0.8) K/mm3 Eos # 0.0 (0.0-0.4) K/mm3 Baso # 0.0 (0.0-0.1) K/mm3 Comprehensive Metabolic Panel 02/16/17 Range/Units 09:43 Sodium 127 L (137-145) mmol/L Potassium 3.7 (3.6-5.0) mmol/L Chloride 85.4 L (98-107) mmol/L Carbon Dioxide 30 (22-30) mmol/L BUN 12 (9-20) mg/dL Creatinine 0.4 L (0.8-1.5) mg/dL Glucose 185 H (75-100) mg/dL Calcium 9.6 (8.4-10.2) mg/dL
[2017-02-16] MEDS: ZESTRIL PO SCH (15:25)
[2017-02-16] MEDS: LOPRESSOR PO SCH ×2 (15:28→21:47)
[2017-02-16] MEDS: HCTZ PO SCH (15:28)
[2017-02-16] MEDS: CLARITIN PO SCH (15:28)
[2017-02-16] MEDS: FLOMAX PO SCH (15:28)
[2017-02-16] MEDS: PROzac PO SCH (15:29)
[2017-02-16] MEDS: BABY ASPIRIN PO SCH (15:29)
[2017-02-16] MEDS ORDERED: LASIX PO ONE (18:07)
--- NOTE | 2017-02-16 19:38 | Progress Note ---
Assessment and Plan Assessment and plan: 81-year-old man with a history of hypertension, diabetes complicated by neuropathy, coronary artery disease, hyperlipidemia, glaucoma, cataracts, venous insufficiency comes emergency room with complaints of frequent falls. Family at bedside state that patient was scheduled for surgery on knees in May of last year but he had an infection, surgery was postponed. He has fallen at least 10 times since November, and EMS had to be called the last few times to help get him off the floor. He said increased lower extremity edema. He saw his primary care physician yesterday, was diagnosed with a urinary tract infection, was given antibiotic but has not taking any yet. He is alert no fever chills, cough, chest pain. He had episodes of nausea vomiting this morning. 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 * sodium improving * await culture and sensitivity * await PT/OT per family physical therapy has been working with the patient at home but has not got that the patient on BX due to his severe weakness. I've advised family to be compliant with physical therapy saying not get the patient off unless he is strong enough and uses a walker. * We'll continue antibiotic while awaiting urinalysis and urine culture * Continue home medications * DVT and GI prophylaxis * We'll give a dose of Lasix * Discontinue heparin drip at this point. * Plan of care discussed with the patient and the daughter History Interval history: Patient was seen and examined today, reports some improvement. no chest pain, no incontinence. awaiting PT/OT [facility] Hospitalist Physical - Physical exam Narrative exam: VITAL SIGNS: Reviewed. GENERAL: The patient appeared well nourished and normally developed, morbidly obese. Vital signs as documented. HEAD: No signs of head trauma. EYES: Pupils are equal. Extraocular motions intact. EARS: Hearing grossly intact. MOUTH: Oropharynx is normal. NECK: No adenopathy, no JVD. CHEST: Chest with clear breath sounds bilaterally. No wheezes, rales, or rhonchi. CARDIAC: Regular rate and rhythm. S1 and S2, without murmurs, gallops, or rubs. VASCULAR: Trace Edema. Peripheral pulses normal and equal in all extremities. ABDOMEN: Truncal obesity Soft, without detectable tenderness. No sign of distention. No rebound or guarding, and no masses palpated. Bowel Sounds normal. MUSCULOSKELETAL: Good range of motion of all major joints. Extremities without clubbing, cyanosis. Noted trace edema. NEUROLOGIC EXAM: Alert and oriented x 3. No focal sensory. Diffuse decreased motor strength of the bilateral lower extremity.. Speech normal. Follows commands. gait not assessed PSYCHIATRIC: Mood normal. SKIN: No rash or lesions. - Constitutional Vitals: Temp Pulse Resp BP Pulse Ox 36.5 F L 98 H 24 144/65 97 02/16/17 12:00 02/16/17 15:28 02/16/17 12:00 02/16/17 15:28 02/16/17 12:00 General appearance: Present: no acute distress Results - Labs CBC & Chem 7: 02/16/17 09:43 02/16/17 09:43 Labs: Laboratory Last Values WBC 9.9 K/mm3 (4.5-11.0) 02/16/17 09:43 RBC 4.25 M/mm3 (3.65-5.03) 02/16/17 09:43 Hgb 12.9 gm/dl (11.8-15.2) 02/16/17 09:43 Hct 38.5 % (35.5-45.6) 02/16/17 09:43 MCV 91 fl (84-94) 02/16/17 09:43 MCH 30 pg (28-32) 02/16/17 09:43 MCHC 34 % (32-34) 02/16/17 09:43 RDW 14.1 % (13.2-15.2) 02/16/17 09:43 Plt Count 180 K/mm3 (140-440) 02/16/17 09:43 Lymph % (Auto) 11.8 % (13.4-35.0) L 02/16/17 09:43 [place] % (Auto) 7.6 % (0.0-7.3) H 02/16/17 09:43 Eos % (Auto) 0.5 % (0.0-4.3) 02/16/17 09:43 Baso % (Auto) 0.4 % (0.0-1.8) 02/16/17 09:43 Lymph # 1.2 K/mm3 (1.2-5.4) 02/16/17 09:43 [place] # 0.7 K/mm3 (0.0-0.8) 02/16/17 09:43 Eos # 0.0 K/mm3 (0.0-0.4) 02/16/17 09:43 Baso # 0.0 K/mm3 (0.0-0.1) 02/16/17 09:43 Seg Neutrophils % 79.7 % (40.0-70.0) H 02/16/17 09:43 Seg Neutrophils # 7.9 K/mm3 (1.8-7.7) H 02/16/17 09:43 PT 13.8 Sec. (12.2-14.9) 02/15/17 00:59 INR 1.07 (0.87-1.13) 02/15/17 00:59 APTT 31.5 Sec. (24.2-36.6) 02/15/17 00:59 Heparin Anti-Xa Level < 0.10 U.I./ml (0.3-0.7) L 02/15/17 08:22 Sodium 127 mmol/L (137-145) L 02/16/17 09:43 Potassium 3.7 mmol/L (3.6-5.0) 02/16/17 09:43 Chloride 85.4 mmol/L (98-107) L 02/16/17 09:43 Carbon Dioxide 30 mmol/L (22-30) 02/16/17 09:43 Anion Gap 15 mmol/L 02/16/17 09:43 BUN 12 mg/dL (9-20) 02/16/17 09:43 Creatinine 0.4 mg/dL (0.8-1.5) L 02/16/17 09:43 Estimated GFR > 60 ml/min 02/16/17 09:43 BUN/Creatinine Ratio 30.00 % 02/16/17 09:43 Glucose 185 mg/dL (75-100) H 02/16/17 09:43 POC Glucose 109 (70-105) H 02/15/17 22:37 Calcium 9.6 mg/dL (8.4-10.2) 02/16/17 09:43 Total Bilirubin 1.0 mg/dL (0.1-1.2) 02/14/17 17:35 AST 14 units/L (5-40) 02/14/17 17:35 ALT 10 units/L (7-56) 02/14/17 17:35 Alkaline Phosphatase 98 units/L (35-129) 02/14/17 17:35 Total Creatine Kinase 51 units/L (55-170) L 02/15/17 06:11 CK-MB (CK-2) 4.6 ng/mL (0.0-4.0) H 02/15/17 06:11 CK-MB (CK-2) Rel Index 9.0 (0-4) H 02/15/17 06:11 Troponin T 0.212 ng/mL (0.00-0.029) H* 02/15/17 06:11 NT-Pro-B Natriuret Pep 317.8 pg/mL (0-900) 02/14/17 17:35 Total Protein 6.4 g/dL (6.3-8.2) 02/14/17 17:35 Albumin 3.5 g/dL (3.9-5) L 02/14/17 17:35 Albumin/Globulin Ratio 1.2 % 02/14/17 17:35 Triglycerides 49 mg/dL (2-149) 02/14/17 17:35 Cholesterol 94 mg/dL (50-199) 02/14/17 17:35 LDL Cholesterol Direct 37 mg/dL (50-130) L 02/14/17 17:35 HDL Cholesterol 48 mg/dL (40-59) 02/14/17 17:35 Cholesterol/HDL Ratio 1.95 % 02/14/17 17:35 Urine Color Yellow (Yellow) 02/14/17 16:00 Urine Turbidity Clear (Clear) 02/14/17 16:00 Urine pH 5.0 (5.0-7.0) 02/14/17 16:00 Ur Specific [place] 1.012 (1.003-1.030) 02/14/17 16:00 Urine Protein <15 mg/dl mg/dL (Negative) 02/14/17 16:00 Urine Glucose (UA) Neg mg/dL (Negative) 02/14/17 16:00 Urine Ketones Neg mg/dL (Negative) 02/14/17 16:00 Urine Blood Sm (Negative) 02/14/17 16:00 Urine Nitrite Neg (Negative) 02/14/17 16:00 Urine Bilirubin Neg (Negative) 02/14/17 16:00 Urine Urobilinogen < 2.0 mg/dL (<2.0) 02/14/17 16:00 Ur Leukocyte Esterase Lg (Negative) 02/14/17 16:00 Urine WBC (Auto) 30.0 /HPF (0.0-6.0) H 02/14/17 16:00 Urine RBC (Auto) 1.0 /HPF (0.0-6.0) 02/14/17 16:00 Urine Mucus Few /HPF 02/14/17 16:00
[2017-02-16] MEDS: ZOFRAN IV PRN (21:40)
[2017-02-16] MEDS: ROCEPHIN/NS 1 GM/50 ML 1 GM/50 ML BAG IV SCH (21:41)
[2017-02-17] MEDS: ROBITUSSIN AC PO PRN ×3 (01:31→22:50)
[2017-02-17 07:32] LABS: Anion Gap 15 mmol/L; Blood Urea Nitrogen 13 mg/dL (9-20); Calcium 9.9 mg/dL (8.4-10.2); Carbon Dioxide 32 mmol/L (22-30); Chloride 86.1 mmol/L (98-107); Glucose 131 mg/dL (75-100); Potassium 4.4 mmol/L (3.6-5.0); Sodium 129 mmol/L (137-145)
[2017-02-17] MEDS: NOVOLOG SUB-Q SCH ×4 (07:59→22:51)
[2017-02-17] MEDS: BABY ASPIRIN PO SCH (10:43)
[2017-02-17] MEDS: CLARITIN PO SCH (10:43)
[2017-02-17] MEDS: PROzac PO SCH (10:43)
[2017-02-17] MEDS: FLOMAX PO SCH (10:43)
[2017-02-17] MEDS: LOPRESSOR PO SCH ×2 (10:44→22:51)
[2017-02-17] MEDS: HCTZ PO SCH (10:44)
[2017-02-17] MEDS: ZESTRIL PO SCH (10:44)
--- NOTE | 2017-02-17 13:41 | Progress Note ---
Assessment and Plan Assessment and plan: 81-year-old man with a history of hypertension, diabetes complicated by neuropathy, coronary artery disease, hyperlipidemia, glaucoma, cataracts, venous insufficiency comes emergency room with complaints of frequent falls. Family at bedside state that patient was scheduled for surgery on knees in May of last year but he had an infection, surgery was postponed. He has fallen at least 10 times since November, and EMS had to be called the last few times to help get him off the floor. He said increased lower extremity edema. He saw his primary care physician yesterday, was diagnosed with a urinary tract infection, was given antibiotic but has not taking any yet. He is alert no fever chills, cough, chest pain. He had episodes of nausea vomiting this morning. 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 * sodium improving * await culture and sensitivity * await PT/OT per family physical therapy has been working with the patient at home but has not got that the patient on BX due to his severe weakness. I've advised family to be compliant with physical therapy saying not get the patient off unless he is strong enough and uses a walker. * Although patient reports incontinence he does have movement and sensation in his lower extremities. I've consulted also but they reported to do not do spine here. I'm recommending an outpatient evaluation by neurosurgery and I'll also continue to discuss with patient and family they would like a transfer I do not see any acute pathology necessitating dose but will try if family will be more comfortable with that. * We'll continue antibiotic while awaiting urinalysis and urine culture * Continue home medications * DVT and GI prophylaxis * We'll give a dose of Lasix * Plan of care discussed with the patient and the daughter History Interval history: Patient was seen and examined today, reports some improvement. no chest pain, I did discuss incontinence again with family and they reported the patient has been having incontinence to urine for about a month. The patient also states sometimes he has incontinence of bowel. He states all this has been going on for about a month and they feel is been becoming progressively worse although unable to state if it is because he is unable to move. Awaiting PT/OT eval Hospitalist Physical - Physical exam Narrative exam: VITAL SIGNS: Reviewed. GENERAL: The patient appeared well nourished and normally developed, morbidly obese. Vital signs as documented. HEAD: No signs of head trauma. EYES: Pupils are equal. Extraocular motions intact. EARS: Hearing grossly intact. MOUTH: Oropharynx is normal. NECK: No adenopathy, no JVD. CHEST: Chest with clear breath sounds bilaterally. No wheezes, rales, or rhonchi. CARDIAC: Regular rate and rhythm. S1 and S2, without murmurs, gallops, or rubs. VASCULAR: Trace Edema. Peripheral pulses normal and equal in all extremities. ABDOMEN: Truncal obesity Soft, without detectable tenderness. No sign of distention. No rebound or guarding, and no masses palpated. Bowel Sounds normal. MUSCULOSKELETAL: Good range of motion of all major joints. Extremities without clubbing, cyanosis. Noted trace edema. NEUROLOGIC EXAM: Alert and oriented x 3. No focal sensory. Diffuse decreased motor strength of the bilateral lower extremity.. Speech normal. Follows commands. gait not assessed PSYCHIATRIC: Mood normal. SKIN: No rash or lesions. - Constitutional Vitals: Temp Pulse Resp BP Pulse Ox 97.4 F L 65 18 100/59 96 02/17/17 12:00 02/17/17 12:00 02/17/17 12:00 02/17/17 12:00 02/17/17 12:00 General appearance: Present: no acute distress Results - Labs CBC & Chem 7: 02/16/17 09:43 02/17/17 06:58 Labs: Laboratory Last Values WBC 9.9 K/mm3 (4.5-11.0) 02/16/17 09:43 RBC 4.25 M/mm3 (3.65-5.03) 02/16/17 09:43 Hgb 12.9 gm/dl (11.8-15.2) 02/16/17 09:43 Hct 38.5 % (35.5-45.6) 02/16/17 09:43 MCV 91 fl (84-94) 02/16/17 09:43 MCH 30 pg (28-32) 02/16/17 09:43 MCHC 34 % (32-34) 02/16/17 09:43 RDW 14.1 % (13.2-15.2) 02/16/17 09:43 Plt Count 180 K/mm3 (140-440) 02/16/17 09:43 Lymph % (Auto) 11.8 % (13.4-35.0) L 02/16/17 09:43 [place] % (Auto) 7.6 % (0.0-7.3) H 02/16/17 09:43 Eos % (Auto) 0.5 % (0.0-4.3) 02/16/17 09:43 Baso % (Auto) 0.4 % (0.0-1.8) 02/16/17 09:43 Lymph # 1.2 K/mm3 (1.2-5.4) 02/16/17 09:43 Henry # 0.7 K/mm3 (0.0-0.8) 02/16/17 09:43 Eos # 0.0 K/mm3 (0.0-0.4) 02/16/17 09:43 Baso # 0.0 K/mm3 (0.0-0.1) 02/16/17 09:43 Seg Neutrophils % 79.7 % (40.0-70.0) H 02/16/17 09:43 Seg Neutrophils # 7.9 K/mm3 (1.8-7.7) H 02/16/17 09:43 PT 13.8 Sec. (12.2-14.9) 02/15/17 00:59 INR 1.07 (0.87-1.13) 02/15/17 00:59 APTT 31.5 Sec. (24.2-36.6) 02/15/17 00:59 Heparin Anti-Xa Level < 0.10 U.I./ml (0.3-0.7) L 02/15/17 08:22 Sodium 129 mmol/L (137-145) L 02/17/17 06:58 Potassium 4.4 mmol/L (3.6-5.0) 02/17/17 06:58 Chloride 86.1 mmol/L (98-107) L 02/17/17 06:58 Carbon Dioxide 32 mmol/L (22-30) H 02/17/17 06:58 Anion Gap 15 mmol/L 02/17/17 06:58 BUN 13 mg/dL (9-20) 02/17/17 06:58 Creatinine 0.4 mg/dL (0.8-1.5) L 02/17/17 06:58 Estimated GFR > 60 ml/min 02/17/17 06:58 BUN/Creatinine Ratio 32.50 % 02/17/17 06:58 Glucose 131 mg/dL (75-100) H 02/17/17 06:58 POC Glucose 121 (70-105) H 02/16/17 21:44 Calcium 9.9 mg/dL (8.4-10.2) 02/17/17 06:58 Total Bilirubin 1.0 mg/dL (0.1-1.2) 02/14/17 17:35 AST 14 units/L (5-40) 02/14/17 17:35 ALT 10 units/L (7-56) 02/14/17 17:35 Alkaline Phosphatase 98 units/L (35-129) 02/14/17 17:35 Total Creatine Kinase 51 units/L (55-170) L 02/15/17 06:11 CK-MB (CK-2) 4.6 ng/mL (0.0-4.0) H 02/15/17 06:11 CK-MB (CK-2) Rel Index 9.0 (0-4) H 02/15/17 06:11 Troponin T 0.212 ng/mL (0.00-0.029) H* 02/15/17 06:11 NT-Pro-B Natriuret Pep 317.8 pg/mL (0-900) 02/14/17 17:35 Total Protein 6.4 g/dL (6.3-8.2) 02/14/17 17:35 Albumin 3.5 g/dL (3.9-5) L 02/14/17 17:35 Albumin/Globulin Ratio 1.2 % 02/14/17 17:35 Triglycerides 49 mg/dL (2-149) 02/14/17 17:35 Cholesterol 94 mg/dL (50-199) 02/14/17 17:35 LDL Cholesterol Direct 37 mg/dL (50-130) L 02/14/17 17:35 HDL Cholesterol 48 mg/dL (40-59) 02/14/17 17:35 Cholesterol/HDL Ratio 1.95 % 02/14/17 17:35 Urine Color Yellow (Yellow) 02/14/17 16:00 Urine Turbidity Clear (Clear) 02/14/17 16:00 Urine pH 5.0 (5.0-7.0) 02/14/17 16:00 Ur Specific [place] 1.012 (1.003-1.030) 02/14/17 16:00 Urine Protein <15 mg/dl mg/dL (Negative) 02/14/17 16:00 Urine Glucose (UA) Neg mg/dL (Negative) 02/14/17 16:00 Urine Ketones Neg mg/dL (Negative) 02/14/17 16:00 Urine Blood Sm (Negative) 02/14/17 16:00 Urine Nitrite Neg (Negative) 02/14/17 16:00 Urine Bilirubin Neg (Negative) 02/14/17 16:00 Urine Urobilinogen < 2.0 mg/dL (<2.0) 02/14/17 16:00 Ur Leukocyte Esterase Lg (Negative) 02/14/17 16:00 Urine WBC (Auto) 30.0 /HPF (0.0-6.0) H 02/14/17 16:00 Urine RBC (Auto) 1.0 /HPF (0.0-6.0) 02/14/17 16:00 Urine Mucus Few /HPF 02/14/17 16:00
--- NOTE | 2017-02-17 14:07 | Progress Note ---
Assessment and Plan - Patient Problems (1) Elevated troponin Current Visit: Yes Status: Acute Plan to address problem: Nonspecific finding. (2) Weakness of both lower extremities Current Visit: Yes Status: Acute Plan to address problem: Recommend a neurology and all orthopedic assessment of the patient's presenting bilateral lower extremity weakness which has resulted in difficult gait and multiple falls. Subjective Date of service: 02/17/17 Interval history: Patient is comfortable, no cardiac complaints. He has bilateral weakness in his legs, undergoing further evaluation. Objective Vital Signs Temp Pulse Pulse Pulse Resp BP BP 02/17/17 12:00 97.4 F L 65 18 100/59 02/17/17 11:30 97.4 F L 65 18 100/59 02/17/17 08:00 97.4 F L 54 L 20 124/63 02/17/17 04:00 97.7 F 57 L 20 146/66 02/17/17 00:00 97.5 F L 64 20 123/73 02/16/17 21:47 67 149/67 02/16/17 21:32 97.6 F 67 18 149/67 02/16/17 20:16 68 02/16/17 19:59 69 02/16/17 19:40 64 22 02/16/17 16:30 36.7 F L 64 24 141/63 02/16/17 15:28 98 H 144/65 Pulse Ox 02/17/17 12:00 96 02/17/17 11:30 96 02/17/17 08:00 98 02/17/17 04:00 98 02/17/17 00:00 95 02/16/17 21:47 02/16/17 21:32 97 02/16/17 20:16 02/16/17 19:59 02/16/17 19:40 99 02/16/17 16:30 95 02/16/17 15:28 - Physical Examination General: No Apparent Distress HEENT: Positive: PERRL Neck: Positive: trachea midline Cardiac: Positive: Reg Rate and Rhythm Lungs: Positive: Decreased Breath Sounds Neuro: Positive: Weakness Abdomen: Positive: Soft Skin: Positive: Clear Extremities: Present: Other (weakness). Absent: edema - Labs and Meds Comprehensive Metabolic Panel 02/17/17 Range/Units 06:58 Sodium 129 L (137-145) mmol/L Potassium 4.4 (3.6-5.0) mmol/L Chloride 86.1 L (98-107) mmol/L Carbon Dioxide 32 H (22-30) mmol/L BUN 13 (9-20) mg/dL Creatinine 0.4 L (0.8-1.5) mg/dL Glucose 131 H (75-100) mg/dL Calcium 9.9 (8.4-10.2) mg/dL
[2017-02-17] MEDS: ZOFRAN IV PRN (20:55)
[2017-02-17] MEDS: ROCEPHIN/NS 1 GM/50 ML 1 GM/50 ML BAG IV SCH (22:51)
[2017-02-18] MEDS: NOVOLOG SUB-Q SCH ×4 (07:54→22:14)
--- NOTE | 2017-02-18 10:37 | Progress Note ---
Assessment and Plan Assessment and plan: 81-year-old man with a history of hypertension, diabetes complicated by neuropathy, coronary artery disease, hyperlipidemia, glaucoma, cataracts, venous insufficiency comes emergency room with complaints of frequent falls. Family at bedside state that patient was scheduled for surgery on knees in May of last year but he had an infection, surgery was postponed. He has fallen at least 10 times since November, and EMS had to be called the last few times to help get him off the floor. He said increased lower extremity edema. He saw his primary care physician yesterday, was diagnosed with a urinary tract infection, was given antibiotic but has not taking any yet. He is alert no fever chills, cough, chest pain. He had episodes of nausea vomiting this morning. 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 * sodium improving * Leukocytosis improved. * awating PT/OT * PT/OT per family physical therapy has been working with the patient at home but has not got that the patient on BX due to his severe weakness. I've advised family to be compliant with physical therapy recommendations and not to move unless he has support and uses a walker. * Although patient reports incontinence he does have STRONG movement and sensation in his lower extremities. I've consulted ortho and changed to Dr Irwin, Will await his Input prior to discharge. * Urine culture did not reveal any growth, considering improvement in U.A will stop abx after tomorrows dose 02/19/17 * Continue home medications * DVT and GI prophylaxis * Plan of care discussed with the patient and the daughter * Anticipate discharge in AM post Ortho eval History Interval history: Patient was seen and examined today, NO new complaints, only one BM since admission, again discussed incontinence and he states its when he cannot get out of bed due to weakness Hospitalist Physical - Physical exam Narrative exam: VITAL SIGNS: Reviewed. GENERAL: The patient appeared well nourished and normally developed, morbidly obese. Vital signs as documented. HEAD: No signs of head trauma. EYES: Pupils are equal. Extraocular motions intact. EARS: Hearing grossly intact. MOUTH: Oropharynx is normal. NECK: No adenopathy, no JVD. CHEST: Chest with clear breath sounds bilaterally. No wheezes, rales, or rhonchi. CARDIAC: Regular rate and rhythm. S1 and S2, without murmurs, gallops, or rubs. VASCULAR: Trace Edema. Peripheral pulses normal and equal in all extremities. ABDOMEN: Truncal obesity Soft, without detectable tenderness. No sign of distention. No rebound or guarding, and no masses palpated. Bowel Sounds normal. MUSCULOSKELETAL: Good range of motion of all major joints. Extremities without clubbing, cyanosis. Noted trace edema. NEUROLOGIC EXAM: Alert and oriented x 3. No focal sensory. Diffuse decreased motor strength of the bilateral lower extremity.. Speech normal. Follows commands. gait not assessed PSYCHIATRIC: Mood normal. SKIN: No rash or lesions. - Constitutional Vitals: Temp Pulse Resp BP Pulse Ox 97.5 F L 58 L 20 145/71 97 02/18/17 07:30 02/18/17 07:30 02/18/17 07:30 02/18/17 07:30 02/18/17 07:30 General appearance: Present: no acute distress Results - Labs CBC & Chem 7: 02/16/17 09:43 02/17/17 06:58 Labs: Laboratory Last Values WBC 9.9 K/mm3 (4.5-11.0) 02/16/17 09:43 RBC 4.25 M/mm3 (3.65-5.03) 02/16/17 09:43 Hgb 12.9 gm/dl (11.8-15.2) 02/16/17 09:43 Hct 38.5 % (35.5-45.6) 02/16/17 09:43 MCV 91 fl (84-94) 02/16/17 09:43 MCH 30 pg (28-32) 02/16/17 09:43 MCHC 34 % (32-34) 02/16/17 09:43 RDW 14.1 % (13.2-15.2) 02/16/17 09:43 Plt Count 180 K/mm3 (140-440) 02/16/17 09:43 Lymph % (Auto) 11.8 % (13.4-35.0) L 02/16/17 09:43 [place] % (Auto) 7.6 % (0.0-7.3) H 02/16/17 09:43 Eos % (Auto) 0.5 % (0.0-4.3) 02/16/17 09:43 Baso % (Auto) 0.4 % (0.0-1.8) 02/16/17 09:43 Lymph # 1.2 K/mm3 (1.2-5.4) 02/16/17 09:43 [place] # 0.7 K/mm3 (0.0-0.8) 02/16/17 09:43 Eos # 0.0 K/mm3 (0.0-0.4) 02/16/17 09:43 Baso # 0.0 K/mm3 (0.0-0.1) 02/16/17 09:43 Seg Neutrophils % 79.7 % (40.0-70.0) H 02/16/17 09:43 Seg Neutrophils # 7.9 K/mm3 (1.8-7.7) H 02/16/17 09:43 PT 13.8 Sec. (12.2-14.9) 02/15/17 00:59 INR 1.07 (0.87-1.13) 02/15/17 00:59 APTT 31.5 Sec. (24.2-36.6) 02/15/17 00:59 Heparin Anti-Xa Level < 0.10 U.I./ml (0.3-0.7) L 02/15/17 08:22 Sodium 129 mmol/L (137-145) L 02/17/17 06:58 Potassium 4.4 mmol/L (3.6-5.0) 02/17/17 06:58 Chloride 86.1 mmol/L (98-107) L 02/17/17 06:58 Carbon Dioxide 32 mmol/L (22-30) H 02/17/17 06:58 Anion Gap 15 mmol/L 02/17/17 06:58 BUN 13 mg/dL (9-20) 02/17/17 06:58 Creatinine 0.4 mg/dL (0.8-1.5) L 02/17/17 06:58 Estimated GFR > 60 ml/min 02/17/17 06:58 BUN/Creatinine Ratio 32.50 % 02/17/17 06:58 Glucose 131 mg/dL (75-100) H 02/17/17 06:58 POC Glucose 104 (70-105) 02/17/17 21:19 Calcium 9.9 mg/dL (8.4-10.2) 02/17/17 06:58 Total Bilirubin 1.0 mg/dL (0.1-1.2) 02/14/17 17:35 AST 14 units/L (5-40) 02/14/17 17:35 ALT 10 units/L (7-56) 02/14/17 17:35 Alkaline Phosphatase 98 units/L (35-129) 02/14/17 17:35 Total Creatine Kinase 51 units/L (55-170) L 02/15/17 06:11 CK-MB (CK-2) 4.6 ng/mL (0.0-4.0) H 02/15/17 06:11 CK-MB (CK-2) Rel Index 9.0 (0-4) H 02/15/17 06:11 Troponin T 0.212 ng/mL (0.00-0.029) H* 02/15/17 06:11 NT-Pro-B Natriuret Pep 317.8 pg/mL (0-900) 02/14/17 17:35 Total Protein 6.4 g/dL (6.3-8.2) 02/14/17 17:35 Albumin 3.5 g/dL (3.9-5) L 02/14/17 17:35 Albumin/Globulin Ratio 1.2 % 02/14/17 17:35 Triglycerides 49 mg/dL (2-149) 02/14/17 17:35 Cholesterol 94 mg/dL (50-199) 02/14/17 17:35 LDL Cholesterol Direct 37 mg/dL (50-130) L 02/14/17 17:35 HDL Cholesterol 48 mg/dL (40-59) 02/14/17 17:35 Cholesterol/HDL Ratio 1.95 % 02/14/17 17:35 Urine Color Yellow (Yellow) 02/14/17 16:00 Urine Turbidity Clear (Clear) 02/14/17 16:00 Urine pH 5.0 (5.0-7.0) 02/14/17 16:00 Ur Specific [place] 1.012 (1.003-1.030) 02/14/17 16:00 Urine Protein <15 mg/dl mg/dL (Negative) 02/14/17 16:00 Urine Glucose (UA) Neg mg/dL (Negative) 02/14/17 16:00 Urine Ketones Neg mg/dL (Negative) 02/14/17 16:00 Urine Blood Sm (Negative) 02/14/17 16:00 Urine Nitrite Neg (Negative) 02/14/17 16:00 Urine Bilirubin Neg (Negative) 02/14/17 16:00 Urine Urobilinogen < 2.0 mg/dL (<2.0) 02/14/17 16:00 Ur Leukocyte Esterase Lg (Negative) 02/14/17 16:00 Urine WBC (Auto) 30.0 /HPF (0.0-6.0) H 02/14/17 16:00 Urine RBC (Auto) 1.0 /HPF (0.0-6.0) 02/14/17 16:00 Urine Mucus Few /HPF 02/14/17 16:00
[2017-02-18] MEDS: ZESTRIL PO SCH (11:56)
[2017-02-18] MEDS: FLOMAX PO SCH (11:56)
[2017-02-18] MEDS: BABY ASPIRIN PO SCH (11:58)
[2017-02-18] MEDS: PROzac PO SCH (11:58)
[2017-02-18] MEDS: HCTZ PO SCH (11:59)
[2017-02-18] MEDS: LOPRESSOR PO SCH ×2 (11:59→22:01)
[2017-02-18] MEDS: CLARITIN PO SCH (11:59)
--- NOTE | 2017-02-18 12:36 | Progress Note ---
Assessment and Plan - Patient Problems (1) Elevated troponin Current Visit: Yes Status: Acute Plan to address problem: Nonspecific finding. No further cardiac workup in the absence of cardiac related symptoms. (2) Weakness of both lower extremities Current Visit: Yes Status: Acute Plan to address problem: Recommend a neurology and/or orthopedic assessment of the patient's presenting bilateral lower extremity weakness which has resulted in difficult gait and multiple falls at home. Subjective Date of service: 02/18/17 Interval history: Patient looks and feels better, no cardiac complaints. He is awaiting the initiation of physical therapy. Objective Vital Signs Temp Pulse Pulse Resp BP BP BP 02/18/17 11:59 67 145/71 02/18/17 11:56 67 145/71 02/18/17 07:30 97.5 F L 58 L 20 145/71 02/18/17 05:16 98.3 F 52 L 18 123/70 02/18/17 00:12 97.8 F 88 18 159/75 02/17/17 22:51 81 136/57 02/17/17 22:00 02/17/17 20:38 68 22 02/17/17 20:06 75 02/17/17 20:02 98.2 F 81 20 136/57 02/17/17 16:30 97.5 F L 71 20 124/64 Pulse Ox 02/18/17 11:59 02/18/17 11:56 02/18/17 07:30 97 02/18/17 05:16 99 02/18/17 00:12 95 02/17/17 22:51 02/17/17 22:00 97 02/17/17 20:38 98 02/17/17 20:06 02/17/17 20:02 98 02/17/17 16:30 99 - Physical Examination General: No Apparent Distress HEENT: Positive: PERRL Neck: Positive: trachea midline Cardiac: Positive: Reg Rate and Rhythm Lungs: Positive: Decreased Breath Sounds Neuro: Positive: Weakness Abdomen: Positive: Soft Skin: Positive: Clear Extremities: Present: Other (weakness). Absent: edema
--- NOTE | 2017-02-18 18:06 | Consultation ---
History of Present Illness - [facility] Consult date: 02/18/17 Consult reason: low back pain History of present illness: 81-year-old male with complaints of progressive weakness in his lower extremities, states he is fallen multiple times since November 2016 past medical history significant for bilateral osteoarthritis of the knees patient states he was scheduled for knee replacement however his came down with methicillin- resistant staph infection therefore surgery was delayed. Medications and Allergies Allergies Allergy/AdvReac Type Severity Reaction Status Date / Time No Known Allergies Allergy Unverified 02/14/17 16:07 Home Medications Medication Instructions Recorded Confirmed Last Taken Type Aspirin [Aspirin BABY CHEW TAB] 81 mg PO QDAY 02/14/17 02/14/17 02/14/17 History AtorvaSTATin [Lipitor] 20 mg PO QDAY 02/14/17 02/14/17 02/14/17 History FLUoxetine [PROzac] 20 mg PO QDAY 02/14/17 02/14/17 02/14/17 History Lisinopril [Zestril TAB] 10 mg PO QDAY 02/14/17 02/14/17 02/14/17 History Lisinopril/Hydrochlorothiazide 1 tab PO QDAY 02/14/17 02/14/17 02/14/17 History [Zestoretic 20-25 mg] Loratadine 10 mg PO QDAY 02/14/17 02/14/17 02/14/17 History Magnesium Carbonate/Al Hydrox 2 each PO DAILY PRN 02/14/17 02/14/17 02/14/17 History [Gaviscon Es Tablet Chew] Metformin HCl [Glucophage] 1,000 mg PO BID 02/14/17 02/14/17 02/14/17 History Metoprolol [Lopressor TAB] 50 mg PO BID 02/14/17 02/14/17 02/14/17 History Tamsulosin [Flomax] 0.4 mg PO QDAY 02/14/17 02/14/17 02/14/17 History Active Meds: Active Medications Acetaminophen (Tylenol) 650 mg PO Q4H PRN PRN Reason: Pain MILD(1-3)/Fever >100.5/EWING Aspirin (Baby Aspirin) 81 mg PO QDAY [facility] Last Admin: 02/18/17 11:58 Dose: 81 mg Atorvastatin Calcium (Lipitor) 20 mg PO HS [facility] Last Admin: 02/17/17 22:51 Dose: 20 mg Bisacodyl (Dulcolax) 10 mg MA QDAY PRN PRN Reason: Constipation unrelieved by MOM Dextrose (D50w (25gm)) 50 ml IV PRN PRN PRN Reason: Hypoglycemia Enoxaparin Sodium (Lovenox) 40 mg SUB-Q QDAY@2200 JAMES Fluoxetine HCl (Prozac) 20 mg PO QDAY [facility] Last Admin: 02/18/17 11:58 Dose: 20 mg Hydrochlorothiazide (Hctz) 25 mg PO QDAY [facility] Last Admin: 02/18/17 11:59 Dose: 25 mg Ceftriaxone Sodium (Rocephin/Ns 1 Gm/50 Ml) 1 gm in 50 mls @ 100 mls/hr IV Q24HR@2200 [facility] PRN Reason: Protocol Last Admin: 02/17/17 22:51 Dose: 100 mls/hr Insulin Aspart (Novolog) 0 units SUB-Q ACHS [facility] PRN Reason: Protocol Last Admin: 02/18/17 07:54 Dose: Not Given Lisinopril (Zestril) 20 mg PO QDAY [facility] Last Admin: 02/18/17 11:56 Dose: 20 mg Loratadine (Claritin) 10 mg PO QDAY [facility] Last Admin: 02/18/17 11:59 Dose: 10 mg Magnesium Hydroxide (Milk Of Magnesia) 30 ml PO Q4H PRN PRN Reason: Constipation Metoprolol Tartrate (Lopressor) 50 mg PO BID [facility] Last Admin: 02/18/17 11:59 Dose: 50 mg Ondansetron HCl (Zofran) 4 mg IV Q8H PRN PRN Reason: N/V unrelieved by Reglan Last Admin: 02/17/17 20:55 Dose: 4 mg Pseudoephedrine/Acetam/Chlorphenir (Robitussin Ac) 10 ml PO Q4H PRN PRN Reason: Cough Last Admin: 02/17/17 22:50 Dose: 10 ml Tamsulosin HCl (Flomax) 0.4 mg PO QDAY [facility] Last Admin: 02/18/17 11:56 Dose: 0.4 mg Physical Examination - Physical exam Narrative exam: Alert and oriented 3 Well-developed moderately obese male in no apparent distress Significant physical findings released to his lower extremities. He was noted to have weakness in the thighs whereas he exhibited good strength in the calf and foot regions strength was 45 throughout the lower extremity. Patient underwent a MRI scan of the cervical and lumbar regions, these images were reviewed by me and show moderately severe degenerative disc disease at L2- 3 with findings consistent with spinal stenosis. Assessment and Plan Assessment lumbar spinal stenosis with weakness in the lower extremities Recommendations - we'll start with physical therapy for gait training and strengthening exercises to the lower extremities, patient may also benefit from pain management with epidural injections
[2017-02-18] MEDS: ROCEPHIN/NS 1 GM/50 ML 1 GM/50 ML BAG IV SCH (21:59)
[2017-02-18] MEDS: ROBITUSSIN AC PO PRN (22:00)
[2017-02-18] MEDS: LOVENOX SUB-Q SCH (22:00)
[2017-02-18] MEDS: ZOFRAN IV PRN (22:01)
[2017-02-19] MEDS: NOVOLOG SUB-Q SCH ×4 (07:00→22:12)
[2017-02-19 07:07] LABS: Anion Gap 16 mmol/L; Blood Urea Nitrogen 14 mg/dL (9-20); Calcium 9.7 mg/dL (8.4-10.2); Carbon Dioxide 33 mmol/L (22-30); Chloride 87.6 mmol/L (98-107); Glucose 131 mg/dL (75-100); Hematocrit 39.6 % (35.5-45.6); Hemoglobin 12.8 gm/dl (11.8-15.2); Mean Corpuscular HGB Conc 32 % (32-34); Mean Corpuscular Hemoglobin 30 pg (28-32); Mean Corpuscular Volume 92 fl (84-94); Platelet Count 198 K/mm3 (140-440); Red Blood Count 4.31 M/mm3 (3.65-5.03); Sodium 132 mmol/L (137-145); White Blood Count 7.5 K/mm3 (4.5-11.0)
[2017-02-19] MEDS: FLOMAX PO SCH (10:58)
[2017-02-19] MEDS: BABY ASPIRIN PO SCH (10:59)
[2017-02-19] MEDS: CLARITIN PO SCH (10:59)
[2017-02-19] MEDS: PROzac PO SCH (10:59)
[2017-02-19] MEDS: ZESTRIL PO SCH (10:59)
[2017-02-19] MEDS: LOPRESSOR PO SCH ×2 (11:00→22:51)
[2017-02-19] MEDS: HCTZ PO SCH (11:00)
--- NOTE | 2017-02-19 11:00 | Progress Note ---
Assessment and Plan Bilateral Leg Weakness Hyponatremia Leukocytosis Elevated troponin, nonspecific Hx of CAD with 3 way CABG 2006 normal perfusion MPI 02/2016 EF 50-55% on echo 02/2016 Diabetes mellitus Hypertension Conservative cardiac management. Subjective Date of service: 02/19/17 Interval history: There are no cardiac complaints. Awaits PT evaluation. Objective Vital Signs Temp Pulse Pulse Pulse Pulse Resp BP 02/19/17 09:03 02/19/17 08:36 02/19/17 04:00 98.2 F 50 L 20 02/19/17 00:00 97.6 F 60 20 02/18/17 22:01 68 150/86 02/18/17 22:00 60 02/18/17 21:57 02/18/17 20:00 97.7 F 68 22 02/18/17 19:19 97.6 F 66 20 02/18/17 19:15 67 02/18/17 11:59 67 145/71 02/18/17 11:56 67 145/71 02/18/17 11:30 97.6 F 63 18 BP Pulse Ox 02/19/17 09:03 91 02/19/17 08:36 97 02/19/17 04:00 130/66 96 02/19/17 00:00 112/66 97 02/18/17 22:01 02/18/17 22:00 02/18/17 21:57 97 02/18/17 20:00 150/86 97 02/18/17 19:19 132/59 99 02/18/17 19:15 02/18/17 11:59 02/18/17 11:56 02/18/17 11:30 134/66 97 - Physical Examination General: No Apparent Distress HEENT: Positive: PERRL Neck: Positive: trachea midline Cardiac: Positive: Reg Rate and Rhythm - Labs and Meds CBC 02/19/17 Range/Units 06:21 WBC 7.5 (4.5-11.0) K/mm3 RBC 4.31 (3.65-5.03) M/mm3 Hgb 12.8 (11.8-15.2) gm/dl Hct 39.6 (35.5-45.6) % Plt Count 198 (140-440) K/mm3 Comprehensive Metabolic Panel 02/19/17 Range/Units 06:21 Sodium 132 L (137-145) mmol/L Potassium 5.0 (3.6-5.0) mmol/L Chloride 87.6 L (98-107) mmol/L Carbon Dioxide 33 H (22-30) mmol/L BUN 14 (9-20) mg/dL Creatinine 0.4 L (0.8-1.5) mg/dL Glucose 131 H (75-100) mg/dL Calcium 9.7 (8.4-10.2) mg/dL
--- NOTE | 2017-02-19 13:21 | Progress Note ---
Assessment and Plan Assessment and plan: 81-year-old man with a history of hypertension, diabetes complicated by neuropathy, coronary artery disease, hyperlipidemia, glaucoma, cataracts, venous insufficiency comes emergency room with complaints of frequent falls. Family at bedside state that patient was scheduled for surgery on knees in May of last year but he had an infection, surgery was postponed. He has fallen at least 10 times since November, and EMS had to be called the last few times to help get him off the floor. He said increased lower extremity edema. He saw his primary care physician yesterday, was diagnosed with a urinary tract infection, was given antibiotic but has not taking any yet. He is alert no fever chills, cough, chest pain. He had episodes of nausea vomiting this morning. 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 sodium improving Leukocytosis improved. PT/OT evaluation pending Although patient reports incontinence he does have STRONG movement and sensation in his lower extremities. I've consulted ortho and changed to Dr Irwin, Will await his Input prior to discharge. Urine culture did not reveal any growth, considering improvement in U.A will stop abx after tomorrows dose 02/19/17 Continue home medications DVT and GI prophylaxis Plan of care discussed with the patient and the daughter Anticipate discharge in AM post Ortho eval Disposition: Since patient is unable to walk, await PT evaluation for proper placement. Physical therapy did see patient but did not recommend any disposition; therefore, I called for clarification which is holding up discharge. Await response History Interval history: Patient seen and examined. Follow up on inability to stand which is still present. Overnight uneventful. No cp, sob, n/v or severe headaches. Imaging, old records, testing, labs, nursing notes reviewed. Plan discussed with patient. Daughter and is at bedside. Patient is on 2 L nasal cannula which is new to him. His urinary incontinence is concerning; however, I witnessed patient drinking a cup of coffee which is a natural diuretics and will worsen his urinary incontinence; therefore, counseling done. Hospitalist Physical - Physical exam Narrative exam: GEN: WDWN, NAD, AWAKE, ALERT, ORIENTATED 3 CVS: RRR, NORMAL S1S2 LUNGS/CHEST: CTA B, NORMAL CHEST EXPANSION B, GOOD AIR ENTRY B ABD: SOFT NTND, GBS, NO REBOUND OR GUARDING EXT/SKIN: NO SIGNIFICANT EDEMA OR RASH MSK: FROM X 4 EXTREMITIES NEURO: CN 2-12 GROSSLY INTACT, NO new FOCAL DEFICITS PSY: CALM - Constitutional Vitals: Temp Pulse Resp BP Pulse Ox 98.2 F 66 20 151/79 91 02/19/17 04:00 02/19/17 11:00 02/19/17 04:00 02/19/17 11:00 02/19/17 09:03 General appearance: Present: no acute distress Results - Labs CBC & Chem 7: 02/19/17 06:21 02/19/17 06:21 Labs: Laboratory Last Values WBC 7.5 K/mm3 (4.5-11.0) 02/19/17 06:21 RBC 4.31 M/mm3 (3.65-5.03) 02/19/17 06:21 Hgb 12.8 gm/dl (11.8-15.2) 02/19/17 06:21 Hct 39.6 % (35.5-45.6) 02/19/17 06:21 MCV 92 fl (84-94) 02/19/17 06:21 MCH 30 pg (28-32) 02/19/17 06:21 MCHC 32 % (32-34) 02/19/17 06:21 RDW 14.0 % (13.2-15.2) 02/19/17 06:21 Plt Count 198 K/mm3 (140-440) 02/19/17 06:21 Lymph % (Auto) 11.8 % (13.4-35.0) L 02/16/17 09:43 [place] % (Auto) 7.6 % (0.0-7.3) H 02/16/17 09:43 Eos % (Auto) 0.5 % (0.0-4.3) 02/16/17 09:43 Baso % (Auto) 0.4 % (0.0-1.8) 02/16/17 09:43 Lymph # 1.2 K/mm3 (1.2-5.4) 02/16/17 09:43 [place] # 0.7 K/mm3 (0.0-0.8) 02/16/17 09:43 Eos # 0.0 K/mm3 (0.0-0.4) 02/16/17 09:43 Baso # 0.0 K/mm3 (0.0-0.1) 02/16/17 09:43 Seg Neutrophils % 79.7 % (40.0-70.0) H 02/16/17 09:43 Seg Neutrophils # 7.9 K/mm3 (1.8-7.7) H 02/16/17 09:43 PT 13.8 Sec. (12.2-14.9) 02/15/17 00:59 INR 1.07 (0.87-1.13) 02/15/17 00:59 APTT 31.5 Sec. (24.2-36.6) 02/15/17 00:59 Heparin Anti-Xa Level < 0.10 U.I./ml (0.3-0.7) L 02/15/17 08:22 Sodium 132 mmol/L (137-145) L 02/19/17 06:21 Potassium 5.0 mmol/L (3.6-5.0) 02/19/17 06:21 Chloride 87.6 mmol/L (98-107) L 02/19/17 06:21 Carbon Dioxide 33 mmol/L (22-30) H 02/19/17 06:21 Anion Gap 16 mmol/L 02/19/17 06:21 BUN 14 mg/dL (9-20) 02/19/17 06:21 Creatinine 0.4 mg/dL (0.8-1.5) L 02/19/17 06:21 Estimated GFR > 60 ml/min 02/19/17 06:21 BUN/Creatinine Ratio 35.00 % 02/19/17 06:21 Glucose 131 mg/dL (75-100) H 02/19/17 06:21 POC Glucose 88 (70-105) 02/19/17 05:24 Calcium 9.7 mg/dL (8.4-10.2) 02/19/17 06:21 Total Bilirubin 1.0 mg/dL (0.1-1.2) 02/14/17 17:35 AST 14 units/L (5-40) 02/14/17 17:35 ALT 10 units/L (7-56) 02/14/17 17:35 Alkaline Phosphatase 98 units/L (35-129) 02/14/17 17:35 Total Creatine Kinase 51 units/L (55-170) L 02/15/17 06:11 CK-MB (CK-2) 4.6 ng/mL (0.0-4.0) H 02/15/17 06:11 CK-MB (CK-2) Rel Index 9.0 (0-4) H 02/15/17 06:11 Troponin T 0.212 ng/mL (0.00-0.029) H* 02/15/17 06:11 NT-Pro-B Natriuret Pep 317.8 pg/mL (0-900) 02/14/17 17:35 Total Protein 6.4 g/dL (6.3-8.2) 02/14/17 17:35 Albumin 3.5 g/dL (3.9-5) L 02/14/17 17:35 Albumin/Globulin Ratio 1.2 % 02/14/17 17:35 Triglycerides 49 mg/dL (2-149) 02/14/17 17:35 Cholesterol 94 mg/dL (50-199) 02/14/17 17:35 LDL Cholesterol Direct 37 mg/dL (50-130) L 02/14/17 17:35 HDL Cholesterol 48 mg/dL (40-59) 02/14/17 17:35 Cholesterol/HDL Ratio 1.95 % 02/14/17 17:35 Urine Color Yellow (Yellow) 02/14/17 16:00 Urine Turbidity Clear (Clear) 02/14/17 16:00 Urine pH 5.0 (5.0-7.0) 02/14/17 16:00 Ur Specific [place] 1.012 (1.003-1.030) 02/14/17 16:00 Urine Protein <15 mg/dl mg/dL (Negative) 02/14/17 16:00 Urine Glucose (UA) Neg mg/dL (Negative) 02/14/17 16:00 Urine Ketones Neg mg/dL (Negative) 02/14/17 16:00 Urine Blood Sm (Negative) 02/14/17 16:00 Urine Nitrite Neg (Negative) 02/14/17 16:00 Urine Bilirubin Neg (Negative) 02/14/17 16:00 Urine Urobilinogen < 2.0 mg/dL (<2.0) 02/14/17 16:00 Ur Leukocyte Esterase Lg (Negative) 02/14/17 16:00 Urine WBC (Auto) 30.0 /HPF (0.0-6.0) H 02/14/17 16:00 Urine RBC (Auto) 1.0 /HPF (0.0-6.0) 02/14/17 16:00 Urine Mucus Few /HPF 02/14/17 16:00
--- NOTE | 2017-02-19 13:22 | Discharge Summary ---
Providers - Providers Date of Admission: 02/14/17 23:17 Date of discharge: 02/21/17 Attending physician: YONATAN CHRISTINE 02/15/17 17:07 Consult to Wound/ET Nurse [CONS] Routine Reason For Exam: wound eval 02/16/17 19:34 Physical Therapy Evaluation and Treat [CONS] Routine Comment: Reason For Exam: DEBILITY 02/16/17 19:35 Occupational Therapy Evaluate and Treat [CONS] Routine Comment: Reason For Exam: DEBILITY 02/18/17 11:05 Consult to Physician [CONS] Routine Consulting Provider: TETE NAVARRETE Reason For Exam: DISC PROTRUSION, WITH GENERALIZED LEG WEAKNESS Place consult to:: Dr. Navarrete Notified:: Subhash CURRY Phone number called:: Was contact made?: Yes If yes, spoke with:: Juli-answering service Time called:: 12:16 02/18/17 16:02 Consult to Case Management [CONS] Routine Services Needed at Discharge: DME Equipment Home Health Services Physical Therapy Occupational Therapy Notified:: case investigator Additional Physician Instructions: Hospital BED home health PT/OT. NURSING Primary care physician: SHIRIN CHAVEZ Hospitalization Condition: Stable Hospital course: Patient is a 81-year-old man with a history of hypertension, diabetes complicated by neuropathy, coronary artery disease s/p CABG, hyperlipidemia, glaucoma, cataracts, venous insufficiency who comes to [facility] emergency room with complaints of frequent falls. Family at bedside state that patient was scheduled for surgery on knees in May of last year but he had an infection, surgery was postponed. He has fallen at least 10 times since November, and EMS had to be called the last few times to help get him off the floor. He has increased lower extremity edema. He saw his primary care physician yesterday, was diagnosed with a urinary tract infection, was given antibiotic but has not taking any yet. He is alert no fever chills, cough, chest pain. He had episodes of nausea vomiting this morning. Review of system is unobtainable, patient is sedated, history is per family -Acute cystitis: finished iv rocephin -Acute metabolic encephalopathy secondary to UTI, resolved -Hyponatremia, mild, continue to monitor -CAD -NSTEMI TYPE 2 -DJD mild to moderate -Morbid obesity -Diabetes mellitus with Diabetic neuropathy -Hypertension -Hyperlipidemia -Urinary incontinence, functional -BLE leg weakness most likely polyneuropathy from spinal stenosis per MRI lumbar spine with DM periperal neuropathy. Disposition: Placement pending, also waiting for insurance pre-authorization. Disposition: Since patient is unable to walk, await PT evaluation for proper placement. Physical therapy did see patient but did not recommend any disposition; therefore, I called for clarification which is holding up discharge. Await response Disposition: DC/[place] SNF W [facility] Time spent for discharge: 33 minutes Core Measure Documentation - Palliative Care Palliative Care/ Comfort Measures: Not Applicable - Core Measures Any of the following diagnoses?: none - VTE Discharge Requirements Deep Vein Thrombosis/Pulmonary Embolism Present on Admission: No Has pt received <5 days of overlap therapy or INR<2.0: No Anticoagulant overlap therapy prescribed at discharge: No Contraindication No Overlap Therapy order at DC: Not Indicated Exam - Physical Exam Narrative exam: GEN: WDWN, NAD, AWAKE, ALERT, ORIENTATED 3 CVS: RRR, NORMAL S1S2 LUNGS/CHEST: CTA B, NORMAL CHEST EXPANSION B, GOOD AIR ENTRY B ABD: SOFT NTND, GBS, NO REBOUND OR GUARDING EXT/SKIN: NO SIGNIFICANT EDEMA OR RASH MSK: FROM X 4 EXTREMITIES NEURO: CN 2-12 GROSSLY INTACT, NO new FOCAL DEFICITS PSY: CALM - Constitutional Vitals: Temp Pulse Resp BP Pulse Ox 98.2 F 66 20 151/79 91 02/19/17 04:00 02/19/17 11:00 02/19/17 04:00 02/19/17 11:00 02/19/17 09:03 Plan Activity: up only with assistance (no strenous activites until cleared by PCP. ) Diet: low salt Follow up with: [facility] [Provider Group] - 7 Days PRIMARY CARE, [Referring] - 3-5 Days Prescriptions: Cholecalciferol Vit D3 [Vitamin D3] 1,000 unit PO QDAY #30 tablet
[2017-02-19] MEDS: ROCEPHIN/NS 1 GM/50 ML 1 GM/50 ML BAG IV SCH (22:48)
[2017-02-19] MEDS: ROBITUSSIN AC PO PRN (22:48)
[2017-02-19] MEDS: LOVENOX SUB-Q SCH (22:49)
[2017-02-19] MEDS: ZOFRAN IV PRN (22:49)
--- NOTE | 2017-02-20 09:40 | Progress Note ---
Assessment and Plan Assessment and plan: 81-year-old man with a history of hypertension, diabetes complicated by neuropathy, coronary artery disease s/p CABG, hyperlipidemia, glaucoma, cataracts, venous insufficiency comes emergency room with complaints of frequent falls. Family at bedside state that patient was scheduled for surgery on knees in May of last year but he had an infection, surgery was postponed. He has fallen at least 10 times since November, and EMS had to be called the last few times to help get him off the floor. He said increased lower extremity edema. He saw his primary care physician yesterday, was diagnosed with a urinary tract infection, was given antibiotic but has not taking any yet. He is alert no fever chills, cough, chest pain. He had episodes of nausea vomiting this morning. Review of system is unobtainable, patient is sedated, history is per family -Acute cystitis: on iv rocephin since 02/14/17, last day. 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 Disposition: Placement pending, also waiting for insurance pre-authorization. History Interval history: Patient seen and examined. Follow up on inability to stand which is still present. Overnight uneventful. No cp, sob, n/v or severe headaches. Imaging, old records, testing, labs, nursing notes reviewed. Plan discussed with patient. Daughter, Shobha at bedside. Patient is on 2 L nasal cannula which is new to him. Hospitalist Physical - Physical exam Narrative exam: GEN: WDWN, NAD, AWAKE, ALERT, ORIENTATED 3 CVS: RRR, NORMAL S1S2 LUNGS/CHEST: CTA B, NORMAL CHEST EXPANSION B, GOOD AIR ENTRY B ABD: SOFT NTND, GBS, NO REBOUND OR GUARDING EXT/SKIN: NO SIGNIFICANT EDEMA OR RASH MSK: FROM X 4 EXTREMITIES NEURO: CN 2-12 GROSSLY INTACT, NO new FOCAL DEFICITS PSY: CALM - Constitutional Vitals: Temp Pulse Resp BP Pulse Ox 97.9 F 65 18 143/69 97 02/20/17 06:00 02/20/17 06:00 02/20/17 06:00 02/20/17 06:00 02/20/17 06:00 General appearance: Present: no acute distress Results - Labs CBC & Chem 7: 02/19/17 06:21 02/19/17 06:21 Labs: Laboratory Last Values WBC 7.5 K/mm3 (4.5-11.0) 02/19/17 06:21 RBC 4.31 M/mm3 (3.65-5.03) 02/19/17 06:21 Hgb 12.8 gm/dl (11.8-15.2) 02/19/17 06:21 Hct 39.6 % (35.5-45.6) 02/19/17 06:21 MCV 92 fl (84-94) 02/19/17 06:21 MCH 30 pg (28-32) 02/19/17 06:21 MCHC 32 % (32-34) 02/19/17 06:21 RDW 14.0 % (13.2-15.2) 02/19/17 06:21 Plt Count 198 K/mm3 (140-440) 02/19/17 06:21 Lymph % (Auto) 11.8 % (13.4-35.0) L 02/16/17 09:43 [place] % (Auto) 7.6 % (0.0-7.3) H 02/16/17 09:43 Eos % (Auto) 0.5 % (0.0-4.3) 02/16/17 09:43 Baso % (Auto) 0.4 % (0.0-1.8) 02/16/17 09:43 Lymph # 1.2 K/mm3 (1.2-5.4) 02/16/17 09:43 [place] # 0.7 K/mm3 (0.0-0.8) 02/16/17 09:43 Eos # 0.0 K/mm3 (0.0-0.4) 02/16/17 09:43 Baso # 0.0 K/mm3 (0.0-0.1) 02/16/17 09:43 Seg Neutrophils % 79.7 % (40.0-70.0) H 02/16/17 09:43 Seg Neutrophils # 7.9 K/mm3 (1.8-7.7) H 02/16/17 09:43 PT 13.8 Sec. (12.2-14.9) 02/15/17 00:59 INR 1.07 (0.87-1.13) 02/15/17 00:59 APTT 31.5 Sec. (24.2-36.6) 02/15/17 00:59 Heparin Anti-Xa Level < 0.10 U.I./ml (0.3-0.7) L 02/15/17 08:22 Sodium 132 mmol/L (137-145) L 02/19/17 06:21 Potassium 5.0 mmol/L (3.6-5.0) 02/19/17 06:21 Chloride 87.6 mmol/L (98-107) L 02/19/17 06:21 Carbon Dioxide 33 mmol/L (22-30) H 02/19/17 06:21 Anion Gap 16 mmol/L 02/19/17 06:21 BUN 14 mg/dL (9-20) 02/19/17 06:21 Creatinine 0.4 mg/dL (0.8-1.5) L 02/19/17 06:21 Estimated GFR > 60 ml/min 02/19/17 06:21 BUN/Creatinine Ratio 35.00 % 02/19/17 06:21 Glucose 131 mg/dL (75-100) H 02/19/17 06:21 POC Glucose 154 (70-105) H 02/19/17 22:01 Calcium 9.7 mg/dL (8.4-10.2) 02/19/17 06:21 Total Bilirubin 1.0 mg/dL (0.1-1.2) 02/14/17 17:35 AST 14 units/L (5-40) 02/14/17 17:35 ALT 10 units/L (7-56) 02/14/17 17:35 Alkaline Phosphatase 98 units/L (35-129) 02/14/17 17:35 Total Creatine Kinase 51 units/L (55-170) L 02/15/17 06:11 CK-MB (CK-2) 4.6 ng/mL (0.0-4.0) H 02/15/17 06:11 CK-MB (CK-2) Rel Index 9.0 (0-4) H 02/15/17 06:11 Troponin T 0.212 ng/mL (0.00-0.029) H* 02/15/17 06:11 NT-Pro-B Natriuret Pep 317.8 pg/mL (0-900) 02/14/17 17:35 Total Protein 6.4 g/dL (6.3-8.2) 02/14/17 17:35 Albumin 3.5 g/dL (3.9-5) L 02/14/17 17:35 Albumin/Globulin Ratio 1.2 % 02/14/17 17:35 Triglycerides 49 mg/dL (2-149) 02/14/17 17:35 Cholesterol 94 mg/dL (50-199) 02/14/17 17:35 LDL Cholesterol Direct 37 mg/dL (50-130) L 02/14/17 17:35 HDL Cholesterol 48 mg/dL (40-59) 02/14/17 17:35 Cholesterol/HDL Ratio 1.95 % 02/14/17 17:35 Urine Color Yellow (Yellow) 02/14/17 16:00 Urine Turbidity Clear (Clear) 02/14/17 16:00 Urine pH 5.0 (5.0-7.0) 02/14/17 16:00 Ur Specific [place] 1.012 (1.003-1.030) 02/14/17 16:00 Urine Protein <15 mg/dl mg/dL (Negative) 02/14/17 16:00 Urine Glucose (UA) Neg mg/dL (Negative) 02/14/17 16:00 Urine Ketones Neg mg/dL (Negative) 02/14/17 16:00 Urine Blood Sm (Negative) 02/14/17 16:00 Urine Nitrite Neg (Negative) 02/14/17 16:00 Urine Bilirubin Neg (Negative) 02/14/17 16:00 Urine Urobilinogen < 2.0 mg/dL (<2.0) 02/14/17 16:00 Ur Leukocyte Esterase Lg (Negative) 02/14/17 16:00 Urine WBC (Auto) 30.0 /HPF (0.0-6.0) H 02/14/17 16:00 Urine RBC (Auto) 1.0 /HPF (0.0-6.0) 02/14/17 16:00 Urine Mucus Few /HPF 02/14/17 16:00
[2017-02-20] MEDS: LOPRESSOR PO SCH ×2 (09:52→22:14)
[2017-02-20] MEDS: CLARITIN PO SCH (09:52)
[2017-02-20] MEDS: BABY ASPIRIN PO SCH (09:52)
[2017-02-20] MEDS: FLOMAX PO SCH (09:52)
[2017-02-20] MEDS: HCTZ PO SCH (09:53)
[2017-02-20] MEDS: ZESTRIL PO SCH (09:53)
[2017-02-20] MEDS: PROzac PO SCH (09:53)
[2017-02-20] MEDS: NOVOLOG SUB-Q SCH ×4 (09:55→22:26)
--- NOTE | 2017-02-20 10:02 | Progress Note ---
Assessment and Plan Bilateral Leg Weakness Hyponatremia Leukocytosis Elevated troponin, nonspecific Hx of CAD with 3 way CABG 2006 normal perfusion MPI 02/2016 EF 50-55% on echo 02/2016 Diabetes mellitus Hypertension Recommendations: Medical therapy for his coronary artery disease. Conservative cardiac management. Subjective Date of service: 02/20/17 Interval history: Awaits placement. There are no cardiac complaints. Objective Vital Signs Temp Pulse Pulse Pulse Resp BP BP 02/20/17 06:00 97.9 F 65 18 143/69 02/20/17 00:00 98.2 F 66 18 119/59 02/19/17 22:51 60 125/60 02/19/17 22:00 53 L 02/19/17 20:31 02/19/17 20:00 98.1 F 61 18 125/60 02/19/17 18:16 98.5 F 60 20 126/69 02/19/17 13:22 98.4 F 61 20 147/83 02/19/17 11:00 66 151/79 02/19/17 10:59 66 151/79 Pulse Ox 02/20/17 06:00 97 02/20/17 00:00 98 02/19/17 22:51 02/19/17 22:00 02/19/17 20:31 99 02/19/17 20:00 98 02/19/17 18:16 02/19/17 13:22 02/19/17 11:00 02/19/17 10:59 - Physical Examination General: No Apparent Distress HEENT: Positive: PERRL Neck: Positive: trachea midline Cardiac: Positive: Reg Rate and Rhythm Lungs: Positive: Decreased Breath Sounds Neuro: Positive: Weakness
[2017-02-20] MEDS: ROCEPHIN/NS 1 GM/50 ML 1 GM/50 ML BAG IV SCH (22:12)
[2017-02-20] MEDS: ZOFRAN IV PRN (22:12)
[2017-02-20] MEDS: ROBITUSSIN AC PO PRN (22:14)
[2017-02-20] MEDS: LOVENOX SUB-Q SCH (22:14)
[2017-02-21 08:25] VITALS: BP 128/53
--- NOTE | 2017-02-21 09:41 | Progress Note ---
Assessment and Plan Bilateral Leg Weakness Hyponatremia Leukocytosis Elevated troponin, nonspecific Hx of CAD with 3 way CABG 2006 normal perfusion MPI 02/2016 EF 50-55% on echo 02/2016 Diabetes mellitus Hypertension Recommendations: Medical therapy for his coronary artery disease. Conservative cardiac management. No signs of heart failure on exam Subjective Date of service: 02/21/17 Principal diagnosis: Leg weakness Interval history: Patient denies chest pain or shortness of breath this morning Awaiting transfer to rehab facility Objective Vital Signs Temp Pulse Pulse Pulse Resp BP BP 02/21/17 09:22 54 L 02/21/17 09:16 02/21/17 08:24 97.4 F L 59 L 20 128/53 02/21/17 05:54 98.2 F 54 L 20 128/60 02/21/17 00:58 97.7 F 57 L 20 104/57 02/20/17 22:14 66 157/67 02/20/17 22:00 63 02/20/17 21:32 97.9 F 66 22 157/67 02/20/17 20:05 02/20/17 17:44 63 02/20/17 10:00 58 L 58 L 20 BP Pulse Ox 02/21/17 09:22 02/21/17 09:16 97 02/21/17 08:24 97 02/21/17 05:54 98 02/21/17 00:58 95 02/20/17 22:14 02/20/17 22:00 02/20/17 21:32 98 02/20/17 20:05 98 02/20/17 17:44 129/60 02/20/17 10:00 99 - Physical Examination General: No Apparent Distress HEENT: Positive: PERRL Neck: Positive: trachea midline Cardiac: Positive: Reg Rate and Rhythm Lungs: Positive: Normal Exam Neuro: Positive: Weakness Abdomen: Positive: Soft Skin: Positive: Clear Extremities: Present: Other (weakness). Absent: edema
[2017-02-21] MEDS: NOVOLOG SUB-Q SCH ×2 (10:53→12:49)
[2017-02-21] MEDS: PROzac PO SCH (10:54)
[2017-02-21] MEDS: HCTZ PO SCH (10:54)
[2017-02-21] MEDS: CLARITIN PO SCH (10:54)
[2017-02-21] MEDS: BABY ASPIRIN PO SCH (10:54)
[2017-02-21] MEDS: LOPRESSOR PO SCH (10:54)
[2017-02-21] MEDS: FLOMAX PO SCH (10:54)
[2017-02-21] MEDS: ZESTRIL PO SCH (10:54)
--- NOTE | 2017-02-21 12:36 | Progress Note ---
Assessment and Plan Assessment and plan: Patient is a 81-year-old man with a history of hypertension, diabetes complicated by neuropathy, coronary artery disease s/p CABG, hyperlipidemia, glaucoma, cataracts, venous insufficiency who comes to [facility] emergency room with complaints of frequent falls. Family at bedside state that patient was scheduled for surgery on knees in May of last year but he had an infection, surgery was postponed. He has fallen at least 10 times since November, and EMS had to be called the last few times to help get him off the floor. He has increased lower extremity edema. He saw his primary care physician yesterday, was diagnosed with a urinary tract infection, was given antibiotic but has not taking any yet. He is alert no fever chills, cough, chest pain. He had episodes of nausea vomiting this morning. Review of system is unobtainable, patient is sedated, history is per family -Acute cystitis: finished iv rocephin -Acute metabolic encephalopathy secondary to UTI, resolved -Hyponatremia, mild, continue to monitor -CAD -NSTEMI TYPE 2 -DJD mild to moderate -Morbid obesity -Diabetes mellitus with Diabetic neuropathy -Hypertension -Hyperlipidemia -Urinary incontinence, functional -BLE leg weakness most likely polyneuropathy from spinal stenosis per MRI lumbar spine with DM periperal neuropathy. Disposition: Placement pending, also waiting for insurance pre-authorization. History Interval history: Patient seen and examined. Follow up on inability to stand which is still present. Overnight uneventful. No cp, sob, n/v or severe headaches. Imaging, old records, testing, labs, nursing notes reviewed. Plan discussed with patient. Daughter, Shobha at bedside. Patient is on 2 L nasal cannula which is new to him. Hospitalist Physical - Physical exam Narrative exam: GEN: WDWN, NAD, AWAKE, ALERT, ORIENTATED 3 CVS: RRR, NORMAL S1S2 LUNGS/CHEST: CTA B, NORMAL CHEST EXPANSION B, GOOD AIR ENTRY B ABD: SOFT NTND, GBS, NO REBOUND OR GUARDING EXT/SKIN: NO SIGNIFICANT EDEMA OR RASH MSK: FROM X 4 EXTREMITIES NEURO: CN 2-12 GROSSLY INTACT, NO new FOCAL DEFICITS PSY: CALM - Constitutional Vitals: Temp Pulse Resp BP Pulse Ox 97.4 F L 54 L 20 128/53 97 02/21/17 08:24 02/21/17 09:22 02/21/17 08:24 02/21/17 08:24 02/21/17 09:16 General appearance: Present: no acute distress Results - Labs CBC & Chem 7: 02/19/17 06:21 02/19/17 06:21 Labs: Laboratory Last Values WBC 7.5 K/mm3 (4.5-11.0) 02/19/17 06:21 RBC 4.31 M/mm3 (3.65-5.03) 02/19/17 06:21 Hgb 12.8 gm/dl (11.8-15.2) 02/19/17 06:21 Hct 39.6 % (35.5-45.6) 02/19/17 06:21 MCV 92 fl (84-94) 02/19/17 06:21 MCH 30 pg (28-32) 02/19/17 06:21 MCHC 32 % (32-34) 02/19/17 06:21 RDW 14.0 % (13.2-15.2) 02/19/17 06:21 Plt Count 198 K/mm3 (140-440) 02/19/17 06:21 Lymph % (Auto) 11.8 % (13.4-35.0) L 02/16/17 09:43 [place] % (Auto) 7.6 % (0.0-7.3) H 02/16/17 09:43 Eos % (Auto) 0.5 % (0.0-4.3) 02/16/17 09:43 Baso % (Auto) 0.4 % (0.0-1.8) 02/16/17 09:43 Lymph # 1.2 K/mm3 (1.2-5.4) 02/16/17 09:43 [place] # 0.7 K/mm3 (0.0-0.8) 02/16/17 09:43 Eos # 0.0 K/mm3 (0.0-0.4) 02/16/17 09:43 Baso # 0.0 K/mm3 (0.0-0.1) 02/16/17 09:43 Seg Neutrophils % 79.7 % (40.0-70.0) H 02/16/17 09:43 Seg Neutrophils # 7.9 K/mm3 (1.8-7.7) H 02/16/17 09:43 PT 13.8 Sec. (12.2-14.9) 02/15/17 00:59 INR 1.07 (0.87-1.13) 02/15/17 00:59 APTT 31.5 Sec. (24.2-36.6) 02/15/17 00:59 Heparin Anti-Xa Level < 0.10 U.I./ml (0.3-0.7) L 02/15/17 08:22 Sodium 132 mmol/L (137-145) L 02/19/17 06:21 Potassium 5.0 mmol/L (3.6-5.0) 02/19/17 06:21 Chloride 87.6 mmol/L (98-107) L 02/19/17 06:21 Carbon Dioxide 33 mmol/L (22-30) H 02/19/17 06:21 Anion Gap 16 mmol/L 02/19/17 06:21 BUN 14 mg/dL (9-20) 02/19/17 06:21 Creatinine 0.4 mg/dL (0.8-1.5) L 02/19/17 06:21 Estimated GFR > 60 ml/min 02/19/17 06:21 BUN/Creatinine Ratio 35.00 % 02/19/17 06:21 Glucose 131 mg/dL (75-100) H 02/19/17 06:21 POC Glucose 174 (70-105) H 02/21/17 11:15 Calcium 9.7 mg/dL (8.4-10.2) 02/19/17 06:21 Total Bilirubin 1.0 mg/dL (0.1-1.2) 02/14/17 17:35 AST 14 units/L (5-40) 02/14/17 17:35 ALT 10 units/L (7-56) 02/14/17 17:35 Alkaline Phosphatase 98 units/L (35-129) 02/14/17 17:35 Total Creatine Kinase 51 units/L (55-170) L 02/15/17 06:11 CK-MB (CK-2) 4.6 ng/mL (0.0-4.0) H 02/15/17 06:11 CK-MB (CK-2) Rel Index 9.0 (0-4) H 02/15/17 06:11 Troponin T 0.212 ng/mL (0.00-0.029) H* 02/15/17 06:11 NT-Pro-B Natriuret Pep 317.8 pg/mL (0-900) 02/14/17 17:35 Total Protein 6.4 g/dL (6.3-8.2) 02/14/17 17:35 Albumin 3.5 g/dL (3.9-5) L 02/14/17 17:35 Albumin/Globulin Ratio 1.2 % 02/14/17 17:35 Triglycerides 49 mg/dL (2-149) 02/14/17 17:35 Cholesterol 94 mg/dL (50-199) 02/14/17 17:35 LDL Cholesterol Direct 37 mg/dL (50-130) L 02/14/17 17:35 HDL Cholesterol 48 mg/dL (40-59) 02/14/17 17:35 Cholesterol/HDL Ratio 1.95 % 02/14/17 17:35 Urine Color Yellow (Yellow) 02/14/17 16:00 Urine Turbidity Clear (Clear) 02/14/17 16:00 Urine pH 5.0 (5.0-7.0) 02/14/17 16:00 Ur Specific [place] 1.012 (1.003-1.030) 02/14/17 16:00 Urine Protein <15 mg/dl mg/dL (Negative) 02/14/17 16:00 Urine Glucose (UA) Neg mg/dL (Negative) 02/14/17 16:00 Urine Ketones Neg mg/dL (Negative) 02/14/17 16:00 Urine Blood Sm (Negative) 02/14/17 16:00 Urine Nitrite Neg (Negative) 02/14/17 16:00 Urine Bilirubin Neg (Negative) 02/14/17 16:00 Urine Urobilinogen < 2.0 mg/dL (<2.0) 02/14/17 16:00 Ur Leukocyte Esterase Lg (Negative) 02/14/17 16:00 Urine WBC (Auto) 30.0 /HPF (0.0-6.0) H 02/14/17 16:00 Urine RBC (Auto) 1.0 /HPF (0.0-6.0) 02/14/17 16:00 Urine Mucus Few /HPF 02/14/17 16:00
== END 2017-02-21 14:39 | DRG 551 ==
LOC: ED 15:53 → 4A 23:17
PROVIDERS: ADMIT Internal Medicine; ATTEND Internal Medicine
DX: M48.06 Spinal stenosis, lumbar region (principal); I21.4 Non-ST elevation (NSTEMI) myocardial infarction; G93.41 Metabolic encephalopathy; N30.00 Acute cystitis without hematuria; E87.1 Hypo-osmolality and hyponatremia; R65.10 Systemic inflammatory response syndrome (SIRS) of non-infectious origin without acute organ dysfunction; E11.40 Type 2 diabetes mellitus with diabetic neuropathy, unspecified; E11.42 Type 2 diabetes mellitus with diabetic polyneuropathy; I25.10 Atherosclerotic heart disease of native coronary artery without angina pectoris; I10 Essential (primary) hypertension; E78.5 Hyperlipidemia, unspecified; E66.01 Morbid (severe) obesity due to excess calories; H40.9 Unspecified glaucoma; M19.90 Unspecified osteoarthritis, unspecified site; Z68.39 Body mass index [BMI] 39.0-39.9, adult; Z87.891 Personal history of nicotine dependence; Z82.49 Family history of ischemic heart disease and other diseases of the circulatory system; Z91.81 History of falling
CPT/HCPCS: 36415; 70450; 71010; 72157; 72158; 80048; 80053; 80061; 81001; 82550; 82553; 82962; 83880; 84484; 85014; 85018; 85025; 85027; 85049; 85520; 85610; 85730; 87040; 87086; 93005; 93010; 93306; 94760; 96374; A9270-GY; A9577; G8978-GP; G8979-GP; G8987-GO; G8988-GO; J0696; J1644; J1650; J1815; J2060; J2270; J2405; J7040